=== PATIENT | female | born 1935 | race Caucasian/White ===

== ENCOUNTER → 2016-03-30 | Outpatient (CLI) | payer OTHER ==
--- NOTE | 2016-03-30 18:16 | DX ---
Chest, PA and Lateral History: Cough COMPARISON: Portable exam September 08, 2015 Findings: Lungs are clear, without infiltrate or consolidation. There is chronic or recurrent perihil ar bronchial wall thickening consistent with airways disease. Heart size is normal. There is no adeno jayden or mass lesion. There is no pleural effusion or pneumothorax. A left chest wall pacer device an d associated bipolar pacer leads remain in place. Bones are unremarkable for age. Impression: Chronic or recurrent airways disease without pneumonia. Results called to Luci at ext. [phone], as requested at 6:13 PM.
== END ==
LOC: FIMAGING 16:55
PROVIDERS: ATTEND Family Medicine
DX: J44.9 Chronic obstructive pulmonary disease, unspecified (principal)

== ENCOUNTER → 2016-05-26 | Outpatient (CLI) | payer OTHER | LOC: BMCIMAGING 11:38 | PROVIDERS: ATTEND Internal Medicine | DX: J40 Bronchitis, not specified as acute or chronic (principal) ==

== ENCOUNTER 2016-05-30 11:13 | Inpatient (IN) | payer OTHER ==
--- NOTE | 2016-05-30 11:26 | EDPHY ---
H & P Time Seen by Provider: 05/30/16 11:13 HPI/ROS: CHIEF COMPLAINT: Not feeling well severe shortness of breath HISTORY OF PRESENT ILLNESS: Patient started getting sick a week ago and was seen by her primary care physician's office on Wednesday of this week. Negative influenza testing but chest x-ray was positive for right upper lobe pneumonia and started on oral doxycycline. She had fever 101 degrees on Wednesday but felt better and yesterday was eating and afebrile. Today she got much worse and was short of breath and hypoxic at 50% on room air when paramedics got there. Shortness of breath severe and worse with lying flat. Associated with persistent cough. No associated chest pain or fever. REVIEW OF SYSTEMS: Eye: no change in vision ENT: no sore throat Cardiac: no chest pain or syncope Pulmonary: HPI Abdomen: no vomiting, diarrhea, abdominal pain Musculoskeletal: no back pain Skin: no rash Neuro: no headache Constitutional: HPI : no urinary symptoms A comprehensive 10 point review of systems is otherwise negative aside from elements mentioned in the history of present illness. PAST MEDICAL HISTORY: Influenza negative on 05/26/2016, atrial fibrillation on Eliquis Social history: Nonsmoker, here with General Appearance: Alert and conversant, cooperative. Eyes: No scleral icterus. ENT, Mouth: Normal mucous membranes. No angioedema. Respiratory: Tachypneic, rhonchi greater on the right side than the left, 83% on face mask oxygen. Cardiovascular: Regular rate and rhythm. 2/6 systolic murmur. Gastrointestinal: Abdomen is soft and non tender. Neurological: Alert and oriented x3. Normally conversant. Face symmetric, normal movement and sensation in all extremities. Skin: Warm and dry, no rashes. Musculoskeletal: No peripheral edema and no joint swelling. Psychiatric: Not agitated. Emergency Department course/MDM: Immediately placed on supplemental oxygen and then on CPAP mask. Chest x-ray and labs and blood cultures. 1200: Saturation 93-98% on BiPAP. Plan for IV fluid bolus and broad-spectrum antibiotics to include Zosyn 3.375g. Antibiotic chosen to avoid quinolones and macrolides with the patient already has a slightly long QT on EKG. ICU antibiotics, not hospitalized in the last 3 months. Negative influenza testing 4 days ago. 1205: Currently does not have SIRS criteria. Not tachypneic or tachycardic, normal temperature. 1221:lactate 1.0. ICU admission because of significant oxygen requirement and BiPAP. 1330: Blood pressure 1/15 systolic, patient alert and awake, oxygen saturation on BiPAP is in the mid 90s. Levaquin [address] Kruger, started in the emergency department. Smoking Status: Never smoked Constitutional: Initial Vital Signs Temperature (C) 36.0 C 05/30/16 11:19 Heart Rate 62 05/30/16 11:19 Respiratory Rate 18 05/30/16 11:19 Blood Pressure 141/78 H 05/30/16 11:19 O2 Sat (%) 84 L 05/30/16 11:19 O2 Delivery Mode Bi-Pap O2 (L/minute) 10 Allergies/Adverse Reactions: Sulfa (Sulfonamide Antibiotics) Allergy (Verified 09/08/15 21:36) Home Medications: Medication Instructions Recorded Acyclovir [Zovirax] 800 mg PO DAILY 09/08/15 Levothyroxine [Synthroid 88 mcg 88 mcg PO DAILY06 09/08/15 (*)] Losartan Potassium [Cozaar 50 mg 50 mg PO DAILY 09/08/15 (*)] SIMVASTATIN 10 mg PO HS 09/08/15 cycloSPORINE 0.05% [Restasis Opht 1 drop EACHEYE BID 09/08/15 Drops(*)] Apixaban [Eliquis] 2.5 mg PO BID 05/30/16 Benzonatate 200 mg PO TID PRN 05/30/16 Doxycycline Hyclate [Vibramycin 100 mg PO BID 05/30/16 100 MG (*)] Sotalol HCl [Sotalol] 120 mg PO BID 05/30/16 amLODIPine BESYLATE [Norvasc 5 mg 2.5 - 5 mg PO DAILY 05/30/16 (*)] Medical Decision Making - Diagnostics EKG Interpretation: 12-lead EKG interpreted by me; official reading is in trace master. My interpretation is sinus rhythm with left atrial abnormality. Imaging: Chest x-ray personally interpreted by myself at 11:33 a.m. shows bilateral infiltrates consistent with pneumonia. Procedures: Procedure right femoral vein blood draw Indication: IV access obtained but difficult to draw blood from peripheral access by nurses ChloraPrep and 18 gauge needle and 30 mL some blood drawn from right femoral vein without complication. Differential Diagnosis: Differential diagnosis considered for shortness of breath including but not limited to pulmonary infectious process, COPD, asthma, pulmonary embolus and congestive heart failure. Consult/Admit Bed Type: [facility] 121 Critical Care Time: Critical care time spent by me, Dr. William, exclusively with the care of this patient was 40 minutes, exclusive of PA or [employer] time and exclusive of separate procedures. The organ system at risk was pulmonary and I ordered supplemental oxygen, BiPAP, consultation with respiratory therapist and admitting hospitalist , IV fluid resuscitation and broad spectrum IV antibiotics; to stabilize the patient and prevent worsening of the patient's condition. - Data Points Laboratory Results: Laboratory Results 05/30/16 11:50 05/30/16 11:50 05/30/16 05/30/16 05/30/16 11:50 11:50 11:50 WBC 10.98 10^3/uL H 10^3/uL (3.80-9.50) RBC 4.22 10^6/uL 10^6/uL (4.18-5.33) Hgb 13.8 g/dL g/dL (12.6-16.3) POC Hgb Hct 38.7 % % (38.0-47.0) POC Hct MCV 91.7 fL fL (81.5-99.8) MCH 32.7 pg pg (27.9-34.1) MCHC 35.7 g/dL g/dL (32.4-36.7) RDW 13.2 % % (11.5-15.2) Plt Count 220 10^3/uL 10^3/uL (150-400) MPV 10.7 fL fL (8.7-11.7) Neut % (Auto) 81.9 % H % (39.3-74.2) Lymph % (Auto) 10.8 % L % (15.0-45.0) [place] % (Auto) 6.8 % % (4.5-13.0) Eos % (Auto) 0.0 % L % (0.6-7.6) Baso % (Auto) 0.1 % L % (0.3-1.7) Nucleat RBC Rel Count 0.0 % % (0.0-0.2) Absolute Neuts (auto) 8.99 10^3/uL H 10^3/uL (1.70-6.50) Absolute Lymphs (auto) 1.19 10^3/uL 10^3/uL (1.00-3.00) Absolute Monos (auto) 0.75 10^3/uL 10^3/uL (0.30-0.80) Absolute Eos (auto) 0.00 10^3/uL L 10^3/uL (0.03-0.40) Absolute Basos (auto) 0.01 10^3/uL L 10^3/uL (0.02-0.10) Absolute Nucleated RBC 0.00 10^3/uL 10^3/uL (0-0.01) Immature Gran % 0.4 % % (0.0-1.1) Seg Neutrophils % 71 % % Band Neutrophils % 8 % % Lymphocytes % 14 % % Monocytes % 7 % % Immature Gran # 0.04 10^3/uL 10^3/uL (0.00-0.10) Absolute Seg Neuts 7.80 10^/uL H 10^/uL (1.70-6.50) Absolute Band Neuts 0.88 10^3/uL H 10^3/uL (0.00-0.70) Absolute Lymphocytes 1.54 10^3/uL 10^3/uL (1.00-3.00) Absolute Monocytes 0.77 10^3/uL 10^3/uL (0.30-0.80) Platelet Estimate ADEQUATE (ADEQ) Polychromasia 1+ H Echinocytes 1+ H PT 18.6 SEC H SEC (12.0-15.0) INR 1.55 H (0.83-1.16) APTT 30.3 SEC SEC (23.0-38.0) VBG Lactic Acid POC Sodium Sodium 125 mEq/L L mEq/L (134-144) POC Potassium Potassium 3.9 mEq/L mEq/L (3.5-5.2) POC Chloride Chloride 93 mEq/L L mEq/L (97-110) Carbon Dioxide 22 mEq/l mEq/l (22-31) Anion Gap 10 mEq/L mEq/L (8-16) POC BUN BUN 15 mg/dL mg/dL (7-23) Creatinine 0.5 mg/dL L mg/dL (0.6-1.0) POC Creatinine Estimated GFR > 60 Glucose 116 mg/dL H mg/dL (70-100) POC Glucose Calcium 8.5 mg/dL mg/dL (8.5-10.4) Total Bilirubin 1.0 mg/dL mg/dL (0.1-1.4) 05/30/16 05/30/16 11:48 11:38 WBC RBC Hgb POC Hgb 16.3 gm/dL H gm/dL (12.3-15.9) Hct POC Hct 48 % H % (35.5-47.5) MCV MCH MCHC RDW Plt Count MPV Neut % (Auto) Lymph % (Auto) [place] % (Auto) Eos % (Auto) Baso % (Auto) Nucleat RBC Rel Count Absolute Neuts (auto) Absolute Lymphs (auto) Absolute Monos (auto) Absolute Eos (auto) Absolute Basos (auto) Absolute Nucleated RBC Immature Gran % Seg Neutrophils % Band Neutrophils % Lymphocytes % Monocytes % Immature Gran # Absolute Seg Neuts Absolute Band Neuts Absolute Lymphocytes Absolute Monocytes Platelet Estimate Polychromasia Echinocytes PT INR APTT VBG Lactic Acid 1.0 mmol/L mmol/L (0.7-2.1) POC Sodium 129 mEq/L L mEq/L (134-144) Sodium POC Potassium 3.9 mEq/L mEq/L (3.3-5.0) Potassium POC Chloride 91 mEq/L L mEq/L (96-108) Chloride Carbon Dioxide Anion Gap POC BUN 18 mg/dL mg/dL (7-23) BUN Creatinine POC Creatinine 0.5 mg/dL L mg/dL (0.6-1.2) Estimated GFR Glucose POC Glucose 114 mg/dL H mg/dL (70-100) Calcium Total Bilirubin Medications Given: Discontinued Medications Piperacillin/Tazobactam/Dextrose (Zosyn 3.375 Gm (Premix)) 50 mls @ 100 mls/hr IV EDNOW ONE PRN Reason: Protocol Stop: 05/30/16 12:37 Last Admin: 05/30/16 12:44 Dose: 50 mls Sodium Chloride (Ns) 1,000 mls @ 0 mls/hr IV ONCE ONE PRN Reason: Wide Open Stop: 05/30/16 12:11 Last Admin: 05/30/16 12:23 Dose: 1,000 mls Point of Care Test Results: 03/25/17 11:38 POC Sodium 129 L POC Potassium 3.9 POC Chloride 91 L POC BUN 18 POC Creatinine 0.5 L POC Glucose 114 H Departure - Departure Disposition: [facility] Inpatient Acute Clinical Impression: Hyponatremia Pneumonia Qualifiers: Pneumonia type: due to unspecified organism Laterality: bilateral Lung location : upper lobe of lung Qualified Code(s): J18.9 - Pneumonia, unspecified organism Condition: Serious
--- NOTE | 2016-05-30 11:27 | CPEKG ---
Heart Rate: 60 RR Interval: 1000 P-R Interval: 176 QRSD Interval: 92 QT Interval: 496 QTC Interval: 496 P [place]: 103 QRS [place]: 25 T Wave [place]: 27 EKG Severity - BORDERLINE ECG - EKG Impression: SINUS RHYTHM EKG Impression: PROBABLE LEFT ATRIAL ABNORMALITY EKG Impression: BORDERLINE PROLONGED QT INTERVAL Electronically Signed By: Eddie William 30-May-2016 11:31:48
[2016-05-30 12:01] LABS: % IMMATURE GRANULYOCYTES 0.4 % (0.0-1.1); ABSOLUTE IMMATURE GRANULOCYTES 0.04 10^3/uL (0.00-0.10); ADD DIFF? NO; ADD MORPH? NO; ADD SCAN? YES; FRAGMENT RBC FLAG 0 (0-99); HEMATOCRIT 38.7 % (38.0-47.0); HEMOGLOBIN 13.8 g/dL (12.6-16.3); LEFT SHIFT FLG 0 (0-99); LIPEMIA HEMOLYSIS FLAG 90 (0-99); MEAN CELL HEMOGLOBIN 32.7 pg (27.9-34.1); MEAN CELL HEMOGLOBIN CONCENTR. 35.7 g/dL (32.4-36.7); MEAN CELL VOLUME 91.7 fL (81.5-99.8); MEAN PLATELET VOLUME 10.7 fL (8.7-11.7); PLATELET CLUMPS FLAG 0 (0-99); PLATELET COUNT 220 10^3/uL (150-400); RED BLOOD CELL COUNT 4.22 10^6/uL (4.18-5.33); RED CELL DISTRIBUTION WIDTH 13.2 % (11.5-15.2)
[2016-05-30 12:03] LABS: ATYPICAL LYMPHOCYTE FLAG 270 (0-99)
[2016-05-30] MEDS ORDERED: PIPERACILLIN/TAZO 3.375 GM/DEX 50 ML IV ONE (12:08)
[2016-05-30] MEDS ORDERED: NS 1,000 ML IV ONE (12:10)
[2016-05-30 12:12] LABS: APTT 30.3 SEC (23.0-38.0); INR 1.55 (0.83-1.16); PROTIME(PATIENT) 18.6 SEC (12.0-15.0)
[2016-05-30 12:14] LABS: ANION GAP 10 mEq/L (8-16); CALCIUM 8.5 mg/dL (8.5-10.4); CARBON DIOXIDE 22 mEq/l (22-31); CHLORIDE 93 mEq/L (97-110); CREATININE 0.5 mg/dL (0.6-1.0); GLOMERULAR FILTRATION RATE > 60; GLUCOSE 116 mg/dL (70-100); POTASSIUM 3.9 mEq/L (3.5-5.2); SODIUM 125 mEq/L (134-144)
[2016-05-30 12:19] LABS: SCAN POSITIVE
[2016-05-30 12:23] LABS: ECHINOCYTES 1+; PLATELET ESTIMATE ADEQUATE (ADEQ); POLYCHROMASIA 1+
[2016-05-30] MEDS ORDERED: BENZONATATE 200 MG PO PRN (13:08)
[2016-05-30] MEDS ORDERED: NS W/ 20 KCl/L 1,000 ML IV SCH (13:15)
--- NOTE | 2016-05-30 13:17 | PDGENHP ---
History and Physical - Chief Complaint Acute shortness of breath - History of Present Illness PCP: Dr. Sarmiento Primary import/export specialist: Dr. Rao HPI: 81-year-old female presenting with acute shortness of breath characterized as difficulty breathing with associated cough and documented fever of 101 degrees F with onset of symptoms approximately 1 week ago and duration persistent thereafter. The patient was seen by Dr. Moran 5 days prior to this presentation, a chest x-ray was performed which demonstrated right upper lobe pneumonia, the patient was placed on doxycycline twice daily, which she has been adherent to. The patient reports no improvement in symptoms and her symptoms are exacerbated by lying supine. EMS was called and she was satting 50% on room air. In the [facility] emergency department she had notably difficult work of breathing and was visibly tachypneic, and she was placed on BiPAP and this has somewhat alleviated her tachypnea. Of note, the patient experience which she characterizes as cold or other viral symptoms in the end of March. At that time, she had chest x-ray which demonstrated no focal infiltrate. History Information - Allergies/Home Medication List Allergies/Adverse Reactions: Sulfa (Sulfonamide Antibiotics) Allergy (Verified 09/08/15 21:36) Home Medications: Acyclovir [Zovirax] 800 mg PO DAILY 09/08/15 [Last Taken 05/30/16] Levothyroxine [Synthroid 88 mcg (*)] 88 mcg PO DAILY06 09/08/15 [Last Taken ] Losartan Potassium [Cozaar 50 mg (*)] 50 mg PO DAILY 09/08/15 [Last Taken ] SIMVASTATIN 10 mg PO HS 09/08/15 [Last Taken 05/29/16] cycloSPORINE 0.05% [Restasis Opht Drops(*)] 1 drop EACHEYE BID 09/08/15 [Last Taken 05/30/16] Apixaban [Eliquis] 2.5 mg PO BID 05/30/16 [Last Taken 05/30/16] Benzonatate 200 mg PO TID PRN 05/30/16 [Last Taken Unknown] Doxycycline Hyclate [Vibramycin 100 MG (*)] 100 mg PO BID 05/30/16 [Last Taken 05/30/16] Sotalol HCl [Sotalol] 120 mg PO BID 05/30/16 [Last Taken 05/30/16] amLODIPine BESYLATE [Norvasc 5 mg (*)] 2.5 - 5 mg PO DAILY 05/30/16 [Last Taken 05/30/16] I have personally reviewed and updated: family history, medical history, social history, surgical history - Past Medical History atrial fibrillation (On Eliquis chronically), hypertension Additional medical history: CVA with right lower extremity paresis in 2001, prior to initiating Coumadin. Subdural hematoma while on Coumadin, right frontal area, adjusted to Pradaxa. Glaucoma in the left eye - Surgical History Additional surgical history: Permanent pacemaker, right craniectomy March 2015 , hysterectomy - Family History Additional family history: No Recent sick family contacts - Social History Smoking Status: Never smoked Alcohol Use: Occasionally Drug Use: None Additional social history: Independent in ADLs, lives with her at the [place] Review of Systems ROS: 10pt was reviewed & negative except for what was stated in HPI & below Constitutional: Reports: fever Respiratory: Reports: cough, shortness of breath Physical Exam Temp Pulse Resp BP Pulse Ox 36.4 C 61 16 142/77 H 96 05/30/16 12:01 05/30/16 12:26 05/30/16 12:26 05/30/16 12:26 05/30/16 12:26 Constitutional: appears nourished, not in pain, No no apparent distress ( Moderate distress), No uncomfortable Eyes: PERRL, anicteric sclera, EOMI Ears, Nose, Mouth, Throat: moist mucous membranes, hearing normal Cardiovascular: irregularly irregular, No systolic murmur, No tachycardia, No edema Respiratory: rhonchi (On inspiration bilaterally in the posterior segment), other (Tachypneic when she attempts to speak), No expiratory wheeze, No bronchial breath sounds Gastrointestinal: normoactive bowel sounds, soft, non-tender abdomen, no palpable masses Skin: warm, normal color, no rashes or abrasions, no fluctuance, no induration, No mottled Neurologic: AAOx3, sensation intact bilaterally Psychiatric: other (Lethargic but arousable, follows commands, interacts appropriately when she is awake) Lab Data & Imaging Review 05/30/16 11:50 05/30/16 11:50 WBC 10.98 10^3/uL (3.80-9.50) H 05/30/16 11:50 RBC 4.22 10^6/uL (4.18-5.33) 05/30/16 11:50 Hgb 13.8 g/dL (12.6-16.3) 05/30/16 11:50 POC Hgb 16.3 gm/dL (12.3-15.9) H 05/30/16 11:38 Hct 38.7 % (38.0-47.0) 05/30/16 11:50 POC Hct 48 % (35.5-47.5) H 05/30/16 11:38 MCV 91.7 fL (81.5-99.8) 05/30/16 11:50 MCH 32.7 pg (27.9-34.1) 05/30/16 11:50 MCHC 35.7 g/dL (32.4-36.7) 05/30/16 11:50 RDW 13.2 % (11.5-15.2) 05/30/16 11:50 Plt Count 220 10^3/uL (150-400) 05/30/16 11:50 MPV 10.7 fL (8.7-11.7) 05/30/16 11:50 Neut % (Auto) 81.9 % (39.3-74.2) H 05/30/16 11:50 Lymph % (Auto) 10.8 % (15.0-45.0) L 05/30/16 11:50 [place] % (Auto) 6.8 % (4.5-13.0) 05/30/16 11:50 Eos % (Auto) 0.0 % (0.6-7.6) L 05/30/16 11:50 Baso % (Auto) 0.1 % (0.3-1.7) L 05/30/16 11:50 Nucleat RBC Rel Count 0.0 % (0.0-0.2) 05/30/16 11:50 Absolute Neuts (auto) 8.99 10^3/uL (1.70-6.50) H 05/30/16 11:50 Absolute Lymphs (auto) 1.19 10^3/uL (1.00-3.00) 05/30/16 11:50 Absolute Monos (auto) 0.75 10^3/uL (0.30-0.80) 05/30/16 11:50 Absolute Eos (auto) 0.00 10^3/uL (0.03-0.40) L 05/30/16 11:50 Absolute Basos (auto) 0.01 10^3/uL (0.02-0.10) L 05/30/16 11:50 Absolute Nucleated RBC 0.00 10^3/uL (0-0.01) 05/30/16 11:50 Immature Gran % 0.4 % (0.0-1.1) 05/30/16 11:50 Seg Neutrophils % 71 % 05/30/16 11:50 Band Neutrophils % 8 % 05/30/16 11:50 Lymphocytes % 14 % 05/30/16 11:50 Monocytes % 7 % 05/30/16 11:50 Immature Gran # 0.04 10^3/uL (0.00-0.10) 05/30/16 11:50 Absolute Seg Neuts 7.80 10^/uL (1.70-6.50) H 05/30/16 11:50 Absolute Band Neuts 0.88 10^3/uL (0.00-0.70) H 05/30/16 11:50 Absolute Lymphocytes 1.54 10^3/uL (1.00-3.00) 05/30/16 11:50 Absolute Monocytes 0.77 10^3/uL (0.30-0.80) 05/30/16 11:50 Platelet Estimate ADEQUATE (ADEQ) 05/30/16 11:50 Polychromasia 1+ H 05/30/16 11:50 Echinocytes 1+ H 05/30/16 11:50 PT 18.6 SEC (12.0-15.0) H 05/30/16 11:50 INR 1.55 (0.83-1.16) H 05/30/16 11:50 APTT 30.3 SEC (23.0-38.0) 05/30/16 11:50 VBG Lactic Acid 1.0 mmol/L (0.7-2.1) 05/30/16 11:48 POC Sodium 129 mEq/L (134-144) L 05/30/16 11:38 Sodium 125 mEq/L (134-144) L 05/30/16 11:50 POC Potassium 3.9 mEq/L (3.3-5.0) 05/30/16 11:38 Potassium 3.9 mEq/L (3.5-5.2) 05/30/16 11:50 POC Chloride 91 mEq/L (96-108) L 05/30/16 11:38 Chloride 93 mEq/L (97-110) L 05/30/16 11:50 Carbon Dioxide 22 mEq/l (22-31) 05/30/16 11:50 Anion Gap 10 mEq/L (8-16) 05/30/16 11:50 POC BUN 18 mg/dL (7-23) 05/30/16 11:38 BUN 15 mg/dL (7-23) 05/30/16 11:50 Creatinine 0.5 mg/dL (0.6-1.0) L 05/30/16 11:50 POC Creatinine 0.5 mg/dL (0.6-1.2) L 05/30/16 11:38 Estimated GFR > 60 05/30/16 11:50 Glucose 116 mg/dL (70-100) H 05/30/16 11:50 POC Glucose 114 mg/dL (70-100) H 05/30/16 11:38 Calcium 8.5 mg/dL (8.5-10.4) 05/30/16 11:50 Total Bilirubin 1.0 mg/dL (0.1-1.4) 05/30/16 11:50 Visualized and Interpreted Chest x-ray results: Yes Chest X-Ray results: other (Bilateral infiltrates, right upper lobe consolidation) Visualized and Interpreted EKG results: Yes EKG Interpretation: Positive for: other (QT interval around 500, low voltage in the inferior leads) Assessment & Plan Assessment: 81-year-old female presents with acute hypoxic respiratory failure in the setting of pneumonia Plan: 1. Acute hypoxic respiratory failure. New problem this provider, further workup indicated. Evidenced by SpO2 of 50% on room air on presentation, her SpO2 was 84% on 10 L nasal cannula which is equivalent to a P:F ratio of 96 ( severe acute lung injury by WHO criteria) + visible tachypnea and labored breathing on presentation, 2/2 pneumonia. -get baseline ABG -adjust from BiPAP to vapotherm 2. Pneumonia. Community acquired, time course of viral illness 03/30/16 is a bit outside of when one typically sees post-viral MRSA superinfxn -d/w Dr. William in ED, we both agree that covering for atypicals w/o macrolide is a good idea since her QT 500 and on sotalol -outside records reviewed including neg flu PCR 05/26 and CXR w/ RUL inf -received zosyn in ED, will adjust to levofloxacin 750mg IV daily -get uLeg/uStrep/sputum Cx/BCx -monitor CBC 3. Atrial fibrillation. Persistent, in NSR b/c of sotalol, continue -cont eliquis -monitor on tele -daily EKG to monitor QT 4. Hyponatremia. Acute, 2/2 hypovolemia, cont on NS Diet. Regular, BUS ESCORT eval PPx. High risk, on eliquis Code. Full per patient, MPOA Dispo. ADD uncertain, anticipated LOS > 48hrs warranting inpatient admission status for reasonable medical necessity including acute resp failure requiring high flow o2 w/ high risk comorbid afib, hyponatremia, PNA.
[2016-05-30] MEDS ORDERED: levOFLOXACIN 750 MG/DEXTROSE/150 ML BAG IV ONE (13:30)
[2016-05-30] MEDS ORDERED: BENZONATATE 100 MG CAP PO PRN (13:54)
[2016-05-30 15:58] LABS: COLOR PALE YELLOW; LEUKOCYTE ESTERASE,URINE NEGATIVE (NEGATIVE); NITRITE,URINE NEGATIVE (NEGATIVE)
[2016-05-30 16:06] LABS: BACTERIA TRACE /hpf (NONE SEEN); MUCUS TRACE /lpf (NONE-1+); WBC,URINE NONE SEEN /hpf (0-3)
[2016-05-30 20:13] LABS: BASE EXCESS -1.6 mEq/L (-2.5-2.5); BICARBONATE 22 mEq/L (22-26); MEASURED OXYGEN SATURATION 88 % (92-95); PCO2 33 mmHg (34-38); PO2 56 mmHg (65-75); TCO2 23 mEq/L (23-27)
--- NOTE | 2016-05-30 20:52 | GCON ---
[f rep st] CONSULTATION PULMONARY CONSULT DATE OF CONSULTATION: 05/30/2016 HISTORY OF PRESENT ILLNESS: This patient is an 81-year-old female who was admitted today with short ness of breath associated with cough and fever of 101. She was seen in her primary care physician's office earlier this week, and a chest x-ray was performed showing a right upper lobe pneumonia. Susan abbott was treated with doxycycline, but has had no improvement since that time. Particularly notes that her breathing was bad in a supine position. She tried sitting up in bed, was unable to sleep that way. She found that even walking around and just standing upright, her breathing was good. She valeria led EMS this morning though and found that her oxygen saturation was 50% on room air. She was broug ht to the emergency department. A repeat chest x-ray showed substantial worsening of her infiltrate , and she was placed on BiPAP which helped substantially. REVIEW OF SYSTEMS: Otherwise was negative. PAST MEDICAL HISTORY: Includes: 1. Atrial fibrillation. 2. Hypertension. 3. Stroke with right lower extremity paresis in 2001. 4. Subdural hematoma while on Coumadin, adjusted to Pradaxa. 5. Glaucoma in her left eye. 6. Hypothyroidism. 7. Probably varicella. 8. Probable glaucoma. 9. Hyperlipidemia. PAST SURGICAL HISTORY: Includes pacemaker, a right craniectomy in March 2015 and hysterectomy. FAMILY HISTORY: Otherwise noncontributory. SOCIAL HISTORY: She is a nonsmoker. Drinks occasional alcohol, but no IV drug use. Lives independ ently. OUTPATIENT MEDICATIONS: Include simvastatin, cyclosporine eye drops, losartan, levothyroxine, acycl ovir, amlodipine, doxycycline, Eliquis, sotalol and benzonatate capsules. PHYSICAL EXAMINATION: VITAL SIGNS: She is afebrile, blood pressure is 141/78, heart rate 62, respi rations 18, oxygen saturation is 97% on Vapotherm at 30 L/minute and 90% of FiO2. GENERAL: She is awake and alert, in no apparent distress and able to speak in full sentences without using accessory muscles for breathing. HEENT: Pupils equally round, reactive to light. Nonicteric and noninjecte d. Mucous membranes are moist without erythema or exudate. NECK: Supple without adenopathy or jug ular vein distention. CHEST: Reveals bilateral coarse breath sounds without obvious wheezing. HEA RT: Regular rate and rhythm without obvious murmur. ABDOMEN: Soft, nontender, nondistended withou t hepatosplenomegaly. EXTREMITIES: Shows no clubbing, cyanosis, or edema. NEUROLOGIC: Nonfocal i ncluding cranial nerves and deep tendon reflexes. OBJECTIVE DATA: Includes a white count of 10.98, hematocrit of 38, platelets of 220. INR was 1.5. Sodium was 125, with potassium at 3.9, chloride 93, bicarb 22, BUN 15, creatinine 0.5. Urinalysis was unremarkable. Chest x-ray as described. ASSESSMENT AND PLAN: 1. Probable community-acquired pneumonia that failed outpatient antibiotic therapy; as is seen many times pneumonias can be become worse before they get better. This may have been the underlying leonarda e. Blood cultures are pending at this time. She is treated with Levaquin monotherapy which is cert ainly not unreasonable. I think that a urinary streptococcal and Legionella antigens should be chec ked as well as a BNP. Of course, we should continue to support her with oxygen; Vapotherm is fairly high dose, but she does not look like she is in distress and I think in the setting of pneumonia th at noninvasive ventilation can actually make these things substantially worse. 2. Hyponatremia. This may be an SIADH picture, and we will check the serum and urine osmoles. 3. Atrial fibrillation. She appears to be well controlled at this time. Continue her outpatient m edications. /[id number]/[id number]
[2016-05-30] MEDS: SIMVASTATIN 10 MG PO SCH (20:53)
[2016-05-30] MEDS: APIXABAN 2.5 MG TAB PO SCH (20:53)
[2016-05-30] MEDS: SOTALOL HCL 120 MG PO SCH (20:53)
[2016-05-30] MEDS: CYCLOSPORINE 0.05% 1 EACH BOX EACHEYE SCH (20:54)
[2016-05-30] MEDS ORDERED: NON-FORMULARY NEW DRUG (Sotalol Hcl [Sotalol] 120 MG) PO SCH (21:00)
[2016-05-30] MEDS ORDERED: SOTALOL HCL 80 MG TAB PO SCH (21:00)
[2016-05-30] MEDS ORDERED: NON-FORMULARY NEW DRUG (Simvastatin [Simvastatin] 10 MG) PO SCH (21:00)
[2016-05-30] MEDS ORDERED: PRAVASTATIN SODIUM 20 MG TAB PO SCH (21:00)
[2016-05-31 04:06] LABS: % IMMATURE GRANULYOCYTES 0.5 % (0.0-1.1); ABSOLUTE IMMATURE GRANULOCYTES 0.07 10^3/uL (0.00-0.10); ADD DIFF? NO; ADD MORPH? NO; ADD SCAN? NO; ATYPICAL LYMPHOCYTE FLAG 90 (0-99); FRAGMENT RBC FLAG 0 (0-99); HEMATOCRIT 38.2 % (38.0-47.0); HEMOGLOBIN 13.3 g/dL (12.6-16.3); LEFT SHIFT FLG 0 (0-99); LIPEMIA HEMOLYSIS FLAG 90 (0-99); MEAN CELL HEMOGLOBIN 32.3 pg (27.9-34.1); MEAN CELL HEMOGLOBIN CONCENTR. 34.8 g/dL (32.4-36.7); MEAN CELL VOLUME 92.7 fL (81.5-99.8); MEAN PLATELET VOLUME 10.6 fL (8.7-11.7); PLATELET CLUMPS FLAG 0 (0-99); PLATELET COUNT 219 10^3/uL (150-400); RED BLOOD CELL COUNT 4.12 10^6/uL (4.18-5.33); RED CELL DISTRIBUTION WIDTH 13.2 % (11.5-15.2)
[2016-05-31 04:18] LABS: ALANINE AMINOTRANSFERASE 41 IU/L (9-52); ALBUMIN 2.5 g/dL (3.5-5.0); ALKALINE PHOSPHATASE 68 IU/L (38-126); ANION GAP 8 mEq/L (8-16); ASPARTATE AMINOTRANSFERASE 41 IU/L (14-46); BILIRUBIN,TOTAL 1.3 mg/dL (0.1-1.4); CALCIUM 7.8 mg/dL (8.5-10.4); CARBON DIOXIDE 21 mEq/l (22-31); CHLORIDE 101 mEq/L (97-110); CREATININE 0.5 mg/dL (0.6-1.0); GLOMERULAR FILTRATION RATE > 60; GLUCOSE 89 mg/dL (70-100); MAGNESIUM 1.5 mg/dL (1.6-2.3); POTASSIUM 3.8 mEq/L (3.5-5.2); SODIUM 130 mEq/L (134-144)
[2016-05-31] MEDS: LEVOTHYROXINE 88 MCG TAB PO SCH (05:38)
[2016-05-31] MEDS: ACYCLOVIR 400 MG TAB PO SCH (08:03)
[2016-05-31] MEDS: amLODIPine BESYLATE 5 MG TAB PO SCH (08:04)
[2016-05-31] MEDS: APIXABAN 2.5 MG TAB PO SCH ×2 (08:05→20:34)
[2016-05-31] MEDS: CYCLOSPORINE 0.05% 1 EACH BOX EACHEYE SCH ×2 (08:06→20:35)
[2016-05-31] MEDS: SOTALOL HCL 120 MG PO SCH ×2 (08:07→20:35)
[2016-05-31] MEDS: ACETAMINOPHEN 325 MG TAB PO PRN ×2 (08:11→21:10)
[2016-05-31] MEDS ORDERED: ACYCLOVIR 800 MG PO SCH (09:00)
[2016-05-31] MEDS ORDERED: VANCOMYCIN 750 MG in D5W 150 ML IV SCH (11:00)
[2016-05-31] MEDS: methylPREDNISolone SOD SUCC 125 MG/2 ML VIAL IVP SCH ×3 (11:42→23:40)
[2016-05-31] MEDS: VANCOMYCIN 750 MG in D5W 150 ML IV SCH (11:42)
--- NOTE | 2016-05-31 14:20 | HOSPPROG ---
Hospitalist Progress Note Assessment/Plan: Assessment: 81-year-old female presents with acute hypoxic respiratory failure in the setting of pneumonia Plan: 1. Acute hypoxic respiratory failure. Evidenced by SpO2 of 50% on room air on presentation, her SpO2 was 84% on 10 L nasal cannula which is equivalent to a P: F ratio of 96 (severe acute lung injury by WHO criteria) + visible tachypnea and labored breathing on presentation, 2/2 pneumonia. -failed vapotherm 100% o/n, placed back on BiPAP -d/w Dr. Marion, will reattempt w/ vapotherm today 2. Pneumonia. POA, community acquired, time course of viral illness 03/30/16 is a bit outside of when one typically sees post-viral MRSA superinfxn, but given clinical worsening, per d/w Dr. Marion, we have agreed to add Vanco to the Levaquin -due to clinical worsening, add steroid per 2016 published literature/search and EBM -uLeg/uStrep/sputum Cx/BCx pending -monitor CBC 3. Atrial fibrillation. Persistent, in NSR b/c of sotalol, continue -cont eliquis -monitor on tele -daily EKG to monitor QT 4. Hyponatremia. Acute, 2/2 hypovolemia and possible SIADH, cont on NS Diet. NPO while on BiPAP, adv if kit vapotherm PPx. High risk, on eliquis Code. Full per patient, MPOA Dispo. ADD uncertain, clinically unresolved. Patient remains high risk of mortality, high level of medical complexity 2/2 conditions above. Subjective: Patient continues to feel short of breath Objective: Vital Signs Temp Pulse Resp BP Pulse Ox 36.9 C 60 29 H 137/67 H 88 L 05/31/16 08:00 05/31/16 12:00 05/31/16 12:00 05/31/16 12:00 05/31/16 12:00 Microbiology 05/31/16 03:50 - Final Sputum, Expectorated Laboratory Results 05/31/16 03:50 05/31/16 03:50 05/30/16 05/31/16 06/01/16 05:59 05:59 05:59 Intake Total 3062 Output Total 910 Balance 2152 PT 18.6 SEC (12.0-15.0) H 05/30/16 11:50 INR 1.55 (0.83-1.16) H 05/30/16 11:50 - Physical Exam Constitutional: appears nourished, not in pain, uncomfortable (Moderate with BiPAP mask), No no apparent distress (Moderate distress) Cardiovascular: systolic murmur (2/6 at the sternum and apex), No irregularly irregular, No tachycardia, No edema Respiratory: respiratory distress (Visibly tachypneic), rhonchi (On inspiration by), No expiratory wheeze, No bronchial breath sounds Gastrointestinal: normoactive bowel sounds, soft, non-tender abdomen, no palpable masses Psychiatric: interacting appropriately, not anxious, not encephalopathic, thought process linear ICD10 Worksheet Patient Problems: Problems Problem Status Onset Hyponatremia Acute Pneumonia Acute Transient cerebral ischemia Acute
--- NOTE | 2016-05-31 14:33 | PDINTPN ---
Tag And Label Cutter Progress Note Assessment/Plan: Assessment/plan: 81 F admitted 05/30 with CAP after failing outpatient therapy with doxycycline and worsening infiltrates on CXR. She has a pacemaker in the setting of atrial fibrillation and HTN, but no chronic lung disease and is a non smoker. She was initially treated with Levaquin. * Respiratory failure with hypoxemia- 2/2 CAP. I am concerned with the level of O2 requirement, severity of infiltrates on CXR, and a rising WBC despite levaquin. A macrolide was held 2/2 concerns about prolonged QT, but additional abx at this point are warranted. I am also in favor of steroid- prednisone 50 mg /d for 5 days (or IV equivalent). Bipap is not an unreasonable option, but I would favor ETT if needed in this setting. Given her tenuous nature I would also keep her NPO. We could also consider a diuretic (she is getting gentle IVF now) given her BNP of 1870. * CAP- as above. Await legionella and strep urinary antigens. * Hyponatremia- consistent with SIADH despite initial tiny rise with IVF. Change to fluid restriction of about 1000 mL/24 hours should her sodium plateau or fall. * CHF? I am unable to locate an echo in [employer] or [employer] so will check one now, though the bulk of evidence supports PNA>CHF Subjective: Required bipap last pm for difficulty maintaining sats, but transitioned back to vapotherm this AM- 20 lpm and 100%. Feels slightly better today Objective: Vital Signs Temp Pulse Resp BP Pulse Ox 36.9 C 60 29 H 137/67 H 88 L 05/31/16 08:00 05/31/16 12:00 05/31/16 12:00 05/31/16 12:00 05/31/16 12:00 Microbiology 05/31/16 03:50 - Final Sputum, Expectorated Laboratory Results 05/31/16 03:50 05/31/16 03:50 05/30/16 05/31/16 06/01/16 05:59 05:59 05:59 Intake Total 3062 Output Total 910 Balance 2152 PT 18.6 SEC (12.0-15.0) H 05/30/16 11:50 INR 1.55 (0.83-1.16) H 05/30/16 11:50 Physical Exam - Physical Exam General Appearance: alert, mild distress EENT: PERRL/EOMI Neck: supple Respiratory: decreased breath sounds, crackles, No respiratory distress Cardiac/Chest: normal peripheral pulses, regular rate, rhythm, No edema Abdomen: normal bowel sounds, non-tender, soft, No distended Skin: normal color, warm/dry Lymphatic: no adenopathy Extremities: No pedal edema Neuro/Psych: alert, normal mood/affect, oriented x 3 ICD10 Worksheet Patient Problems: Problems Problem Status Onset Hyponatremia Acute Pneumonia Acute Transient cerebral ischemia Acute
[2016-05-31] MEDS: SIMVASTATIN 10 MG PO SCH (20:34)
[2016-06-01] MEDS: methylPREDNISolone SOD SUCC 125 MG/2 ML VIAL IVP SCH ×2 (06:27→11:46)
[2016-06-01] MEDS: LEVOTHYROXINE 88 MCG TAB PO SCH (06:27)
[2016-06-01 06:44] LABS: % IMMATURE GRANULYOCYTES 0.9 % (0.0-1.1); ADD DIFF? NO; ADD MORPH? NO; ADD SCAN? NO; ATYPICAL LYMPHOCYTE FLAG 40 (0-99); FRAGMENT RBC FLAG 0 (0-99); HEMATOCRIT 40.6 % (38.0-47.0); HEMOGLOBIN 13.9 g/dL (12.6-16.3); LEFT SHIFT FLG 0 (0-99); LIPEMIA HEMOLYSIS FLAG 90 (0-99); MEAN CELL HEMOGLOBIN 31.3 pg (27.9-34.1); MEAN CELL HEMOGLOBIN CONCENTR. 34.2 g/dL (32.4-36.7); MEAN CELL VOLUME 91.4 fL (81.5-99.8); MEAN PLATELET VOLUME 10.5 fL (8.7-11.7); PLATELET CLUMPS FLAG 0 (0-99); PLATELET COUNT 252 10^3/uL (150-400); RED BLOOD CELL COUNT 4.44 10^6/uL (4.18-5.33); RED CELL DISTRIBUTION WIDTH 13.5 % (11.5-15.2)
[2016-06-01 07:09] LABS: ANION GAP 7 mEq/L (8-16); CALCIUM 8.3 mg/dL (8.5-10.4); CARBON DIOXIDE 22 mEq/l (22-31); CHLORIDE 107 mEq/L (97-110); CREATININE 0.6 mg/dL (0.6-1.0); GLOMERULAR FILTRATION RATE > 60; GLUCOSE 121 mg/dL (70-100); MAGNESIUM 1.8 mg/dL (1.6-2.3); POTASSIUM 4.5 mEq/L (3.5-5.2); SODIUM 136 mEq/L (134-144)
[2016-06-01] MEDS: ACYCLOVIR 400 MG TAB PO SCH (07:40)
[2016-06-01] MEDS: amLODIPine BESYLATE 5 MG TAB PO SCH (07:40)
[2016-06-01] MEDS: APIXABAN 2.5 MG TAB PO SCH ×2 (07:42→21:32)
[2016-06-01] MEDS: SOTALOL HCL 120 MG PO SCH ×2 (07:43→21:36)
[2016-06-01] MEDS: CYCLOSPORINE 0.05% 1 EACH BOX EACHEYE SCH ×2 (07:43→21:32)
--- NOTE | 2016-06-01 10:42 | ECHO ---
[id number] + + [address] : : [place] [address] : : [phone] + + Adult Echocardiographic Report + ---------+ :Name: DANIEL HINDS FStudy Date: 06/01/2016 07:53 AM : : Hospital Admission Number: [id number] Asia dela cruz: 244: :: 1935 Gender: Female Height: 62 i n : :Age: 81 yrs Race: WH Weight: 115 lb : :Reason For Study: High oxygen requirement/high BNP : : BSA: 1.5 met ers2 : :History: Pacer/HTN : + ---------+ MMode/2D Measurements \T\ Calculations IVSd: 0.89 cm LVIDd: 4.0 cm FS: 28.2 % MV Diam: 3.1 cm LVPWd: 1.0 cm LVIDs: 2.9 cm EDV(Teich): 71.4 ml ESV(Teich): 32.1 ml EF(Teich): 55.0 % Ao root diam: 2.4 cm LVOT diam: 1.8 cm LA dimension: 4.1 cm LVOT area: 2.5 cm2 Normal Measurement Values: + + :LVIDd (3.5-5.7cm) IVSd (0.6-1.1cm) LVPWd (0.6-1.1cm) Aortic Root (2.0-3.7cm)Left Atrium (1.5-4.0cm): :LV Vol(d) (76-115ml) LV Vol(s) (29-48ml) Ejec Fraction (50-65%)PV Farshad (0.6- 1.2m/s) TV Farshad (0.4-1.0m/s) : :MV E Farshad (0.8-1.0m/s)MV A Farshad (0.3-1.0m/s)LVOT Farshad (0.7-1.2m/s) Asc Ao Farshad ( 0.9-1.8m/s) : + + Doppler Measurements \T\ Calculations MV E max farshad: MV V2 max: Ao V2 max: LV V1 mean P.5 cm/sec 181.9 cm/sec 111.9 cm/sec 1.2 mmHg MV A max farshad: MV max P.2 mmHgAo max P.0 mmHgLV V1 mean: 31.5 cm/sec MV V2 mean: Ao mean P.0 cm/sec MV E/A: 5.5 75.0 cm/sec 2.9 mmHg LV V1 VTI: 19.2 cm MV mean P.2 mmHgAo V2 mean: MV V2 VTI: 32.2 cm 79.9 cm/sec MV area (1 diam): Ao V2 VTI: 27.6 cm 7.5 cm2 YECENIA(I,D): 1.7 cm2 MVA(VTI): 1.5 cm2 MV Flow area(1diam): 7.5 cm2 MR max farshad: MR(RF 1 diam): SV(MV 1 diam): TR max farshad: 475.1 cm/sec 22.5 % 243.0 ml 360.9 cm/sec MR max PG: SI(MV 1 diam): TR max P.3 mmHg 52.1 mmHg 160.8 ml/m2 RAP systole: SV(LVOT): 47.1 ml 10.0 mmHg RVSP(TR): 62.1 mmHg RF(MV,Ao)(1 diam): 0.51 RF(MV,LVOT)(1diam): 0.81 Left Ventricle The left ventricle is normal in size. There is mild concentric left ventricular hypertrophy. Left ventricular systolic function is normal. Ejection Fraction = 70-75%. There is Doppler evidence for diastolic dysfunction. No regional wall motion abnormalities noted. Right Ventricle The right ventricle is normal in size and function. There is a pacemaker lead in the right ventricle. Atria The left atrium is severely dilated. The right atrium is mildly dilated. The interatrial septum is intact with no evidence for an atrial septal defect. Mitral Valve Calcified posterior mitral leaflet. There is no evidence of mitral valve prolapse. There is no mitral valve stenosis. There is moderate mitral regurgitation. Tricuspid Valve Normal tricuspid valve. Right ventricular systolic pressure is 63mmHg. There is moderate tricuspid regurgitation. There is Doppler evidence for moderate pulmonary hypertension. Aortic Valve The aortic valve opens well. There is no aortic stenosis. There is no aortic insufficiency. Pulmonic Valve The pulmonic valve is not well visualized. There is no pulmonic valvular regurgitation. Great Vessels The aortic root is normal size. Pericardium/Pleural There is no pericardial effusion. Conclusion A complete two-dimensional transthoracic echocardiogram was performed (2D, M-mode, Doppler and color flow Doppler). Left ventricular systolic function is normal. There is mild concentric left ventricular hypertrophy. Ejection Fraction = 70-75%. There is Doppler evidence for diastolic dysfunction. There is a pacemaker lead in the right ventricle. The left atrium is severely dilated. The right atrium is mildly dilated. Calcified posterior mitral leaflet. There is moderate mitral regurgitation. There is moderate tricuspid regurgitation. Right ventricular systolic pressure is 63mmHg. There is Doppler evidence for moderate pulmonary hypertension. Final Reading Physician: Deepa Liao signed on 06/01/2016 10:41 AM Ordering Physician: Marshall Marion Performed By: Cynthia Conn RDCS
[2016-06-01] MEDS: IPRATROPIUM/ALBUTEROL 3 ML DEYVIAL IH SCH ×3 (10:43→17:40)
[2016-06-01] MEDS: VANCOMYCIN 750 MG in D5W 150 ML IV SCH (11:46)
--- NOTE | 2016-06-01 14:54 | HOSPPROG ---
Hospitalist Progress Note Assessment/Plan: Assessment: 81-year-old female presents with acute hypoxic respiratory failure in the setting of pneumonia Plan: 1. Acute hypoxic respiratory failure. Evidenced by SpO2 of 50% on room air on presentation, her SpO2 was 84% on 10 L nasal cannula which is equivalent to a P: F ratio of 96 (severe acute lung injury by WHO criteria) + visible tachypnea and labored breathing on presentation, 2/2 pneumonia. -s/p BiPAP -d/w Dr. Arzate, will attempt control on vapotherm today -Echo w/ an element of pulm HTN and diastolic dysfunction, but no overt CHF clinically 2. Pneumonia. POA, community acquired -adjust to prednisone D#2 -uLeg/uStrep/sputum Cx/BCx pending -monitor CBC -D#2 Vanco/Levo -add nebs 3. Atrial fibrillation. Persistent, in NSR b/c of sotalol, continue -cont eliquis -monitor on tele -daily EKG to monitor QT 4. Hyponatremia. Acute, 2/2 hypovolemia Diet. Regular PPx. High risk, on eliquis Code. Full per patient, MPOA Dispo. ADD uncertain, clinically unresolved. Subjective: Patient reports that she is feeling better today than she was yesterday, continues to get short of breath with any level of physical activity Objective: Vital Signs Temp Pulse Resp BP Pulse Ox 36.9 C 70 23 H 116/60 96 05/31/16 08:00 06/01/16 14:00 06/01/16 14:00 06/01/16 14:00 06/01/16 14:00 Microbiology 05/31/16 03:50 - Final Sputum, Expectorated Laboratory Results 06/01/16 06:30 06/01/16 06:30 05/31/16 06/01/16 06/02/16 05:59 05:59 05:59 Intake Total 3062 2768 Output Total 910 1950 Balance 2152 818 PT 18.6 SEC (12.0-15.0) H 05/30/16 11:50 INR 1.55 (0.83-1.16) H 05/30/16 11:50 - Physical Exam Constitutional: no apparent distress, appears nourished, not in pain, uncomfortable (With breathing) Cardiovascular: systolic murmur (3/6 at the sternum and apex), No irregularly irregular, No tachycardia, No edema Respiratory: respiratory distress (Difficulty with full sentences), rhonchi ( Bilaterally anteriorly), No expiratory wheeze, No bronchial breath sounds Gastrointestinal: normoactive bowel sounds, soft, non-tender abdomen, no palpable masses Neurologic: AAOx3, No facial droop Psychiatric: interacting appropriately, not anxious, not encephalopathic, thought process linear ICD10 Worksheet Patient Problems: Problems Problem Status Onset Transient cerebral ischemia Acute Pneumonia Acute Hyponatremia Acute
[2016-06-01] MEDS: predniSONE 20 MG TAB PO SCH (16:08)
--- NOTE | 2016-06-01 17:14 | PDINTPN ---
Review Coordinator Progress Note Assessment/Plan: Assessment: 81 F admitted 05/30 with CAP after failing outpatient therapy with doxycycline and worsening infiltrates on CXR. She has a pacemaker in the setting of atrial fibrillation and HTN, but no chronic lung disease and is a non smoker. She was initially treated with Levaquin. * Respiratory failure with hypoxemia- New problem to me. 2/2 multilobar CAP. On Levo/Vanco, as well as prednisone and albuterol nebs. * CAP- as above. Sputum Cx MOF. Await legionella and strep urinary antigens. * Hyponatremia- consistent with SIADH despite initial tiny rise with IVF. Improved with fluid restriction. * CHF?: ECHO with Normal LV, Moderate pulmonary HTN. * Plan: Probably could D/C Vanco if cultures negative tomorrow. Repeat CXR. Increase activity as tolerated. 06/01/16 17:23 06/01/16 17:26 06/02/16 11:27 Subjective: Better today, able to walk out of room. Some non-productive cough this AM, none for the rest of the day. Still gets winded quite easily. Objective: Vital Signs Temp Pulse Resp BP Pulse Ox 36.9 C 61 26 H 118/65 96 05/31/16 08:00 06/01/16 16:00 06/01/16 16:00 06/01/16 16:00 06/01/16 16:00 Microbiology 05/31/16 03:50 - Final Sputum, Expectorated Laboratory Results 06/01/16 06:30 06/01/16 06:30 05/31/16 06/01/16 06/02/16 05:59 05:59 05:59 Intake Total 3062 2768 1038 Output Total 910 1950 200 Balance 2152 818 838 PT 18.6 SEC (12.0-15.0) H 05/30/16 11:50 INR 1.55 (0.83-1.16) H 05/30/16 11:50 ECHO: EF 70-75%, LA severely dilated. Moderate MR. RVSP 63. Physical Exam - Physical Exam General Appearance: alert, no apparent distress EENT: normal ENT inspection Neck: normal inspection Respiratory: rales (bilateral) Cardiac/Chest: regular rate, rhythm Abdomen: normal bowel sounds, non-tender Skin: normal color, warm/dry Extremities: normal inspection Neuro/Psych: alert, normal mood/affect, oriented x 3 ICD10 Worksheet Patient Problems: Problems Problem Status Onset Hyponatremia Acute Pneumonia Acute Transient cerebral ischemia Acute
[2016-06-01] MEDS: MELATONIN 3 MG TAB PO SCH (21:32)
[2016-06-01] MEDS: SIMVASTATIN 10 MG PO SCH (21:34)
[2016-06-02] MEDS: IPRATROPIUM/ALBUTEROL 3 ML DEYVIAL IH SCH ×4 (00:03→18:07)
[2016-06-02] MEDS: LEVOTHYROXINE 88 MCG TAB PO SCH (05:46)
[2016-06-02 06:07] LABS: % IMMATURE GRANULYOCYTES 0.7 % (0.0-1.1); ABSOLUTE IMMATURE GRANULOCYTES 0.12 10^3/uL (0.00-0.10); ADD DIFF? NO; ADD MORPH? NO; ADD SCAN? NO; ATYPICAL LYMPHOCYTE FLAG 30 (0-99); FRAGMENT RBC FLAG 0 (0-99); HEMATOCRIT 37.5 % (38.0-47.0); LEFT SHIFT FLG 0 (0-99); LIPEMIA HEMOLYSIS FLAG 90 (0-99); MEAN CELL HEMOGLOBIN 31.5 pg (27.9-34.1); MEAN CELL HEMOGLOBIN CONCENTR. 34.7 g/dL (32.4-36.7); MEAN CELL VOLUME 90.8 fL (81.5-99.8); MEAN PLATELET VOLUME 10.1 fL (8.7-11.7); PLATELET CLUMPS FLAG 0 (0-99); PLATELET COUNT 253 10^3/uL (150-400); RED BLOOD CELL COUNT 4.13 10^6/uL (4.18-5.33); RED CELL DISTRIBUTION WIDTH 13.5 % (11.5-15.2)
[2016-06-02 06:21] LABS: SODIUM 133 mEq/L (134-144)
[2016-06-02 06:23] LABS: ANION GAP 6 mEq/L (8-16); CALCIUM 8.7 mg/dL (8.5-10.4); CARBON DIOXIDE 21 mEq/l (22-31); CHLORIDE 106 mEq/L (97-110); CREATININE 0.6 mg/dL (0.6-1.0); GLOMERULAR FILTRATION RATE > 60; GLUCOSE 141 mg/dL (70-100); POTASSIUM 4.1 mEq/L (3.5-5.2)
[2016-06-02] MEDS: predniSONE 20 MG TAB PO SCH (08:58)
[2016-06-02] MEDS: SOTALOL HCL 120 MG PO SCH ×2 (08:59→20:08)
[2016-06-02] MEDS: CYCLOSPORINE 0.05% 1 EACH BOX EACHEYE SCH ×2 (08:59→20:07)
[2016-06-02] MEDS: amLODIPine BESYLATE 5 MG TAB PO SCH (09:00)
[2016-06-02] MEDS: APIXABAN 2.5 MG TAB PO SCH ×2 (09:01→20:06)
[2016-06-02] MEDS: ACYCLOVIR 400 MG TAB PO SCH (09:02)
[2016-06-02] MEDS: VANCOMYCIN 750 MG in D5W 150 ML IV SCH (10:50)
--- NOTE | 2016-06-02 11:52 | PDINTPN ---
Interactive Designer Progress Note Assessment/Plan: Assessment: 81 F admitted 05/30 with CAP after failing outpatient therapy with doxycycline and worsening infiltrates on CXR. She has a pacemaker in the setting of atrial fibrillation and HTN, but no chronic lung disease and is a non smoker. She was initially treated with Levaquin. * Respiratory failure with hypoxemia- 2/2 multilobar CAP. On Levo/Vanco, as well as prednisone and albuterol nebs. O2 needs down. * CAP- as above. Await legionella and strep urinary antigens. * Hyponatremia- consistent with SIADH despite initial tiny rise with IVF. Improved with fluid restriction, now down a bit. * CHF?: ECHO with Normal LV, Moderate pulmonary HTN. * Plan: Will change Levaquin to CTX due to concern re: Sotolol and PT prolongation. Await Legionella, and if positive will resume Levaquin and hold Sotolol. Follow CXR. Check 12-lead ECG. Transfer to tele. 06/02/16 12:10 Subjective: Feels better, less dyspnea able to be more active, strength improved, appetite fairly good. Mild cough persists. Objective: Vital Signs Temp Pulse Resp BP Pulse Ox 36.6 C 64 25 H 104/61 92 06/02/16 08:00 06/02/16 10:00 06/02/16 10:00 06/02/16 10:00 06/02/16 10:00 Microbiology 05/31/16 03:50 - Final Sputum, Expectorated Sputum Culture - Final Laboratory Results 06/02/16 06:00 06/02/16 06:00 06/01/16 06/02/16 06/03/16 05:59 05:59 05:59 Intake Total 2768 1358 Output Total 1950 200 Balance 818 1158 PT 18.6 SEC (12.0-15.0) H 05/30/16 11:50 INR 1.55 (0.83-1.16) H 05/30/16 11:50 CXR: Persistent moderately extensive bilateral infiltrates, little change. Images reviewed. Physical Exam - Physical Exam General Appearance: alert, no apparent distress EENT: normal ENT inspection Neck: normal inspection Respiratory: crackles (left>right) Cardiac/Chest: regular rate, rhythm, No edema Abdomen: normal bowel sounds, non-tender Skin: normal color, warm/dry Extremities: normal inspection Neuro/Psych: alert, normal mood/affect, oriented x 3 ICD10 Worksheet Patient Problems: Problems Problem Status Onset Hyponatremia Acute Pneumonia Acute Transient cerebral ischemia Acute
[2016-06-02] MEDS ORDERED: cefTRIAXone 1 GM in D5W 50 ML IV SCH (12:00)
--- NOTE | 2016-06-02 12:17 | CPEKG ---
Heart Rate: 67 RR Interval: 896 P-R Interval: 182 QRSD Interval: 86 QT Interval: 480 QTC Interval: 507 P [place]: 93 QRS [place]: 58 T Wave [place]: 17 EKG Severity - ABNORMAL ECG - EKG Impression: ATRIAL-PACED COMPLEXES EKG Impression: DIFFUSE T WAVE ABNORMALITIES EKG Impression: BORDERLINE PROLONGED QT INTERVAL EKG Impression: No significant change from May 30, 2016 Electronically Signed By: Dany Moran 02-Jun-2016 17:52:51
--- NOTE | 2016-06-02 15:35 | HOSPPROG ---
Hospitalist Progress Note Assessment/Plan: Assessment: 81-year-old female presents with acute hypoxic respiratory failure in the setting of pneumonia Plan: 1. Acute hypoxic respiratory failure. Evidenced by SpO2 of 50% on room air on presentation, her SpO2 was 84% on 10 L nasal cannula which is equivalent to a P: F ratio of 96 (severe acute lung injury by WHO criteria) + visible tachypnea and labored breathing on presentation, 2/2 pneumonia. -s/p BiPAP -weaning o2 requirements today 2. Pneumonia. POA, community acquired -cont prednisone D#3, cont to have bronchial breath sounds -uLeg neg, d/w Dr. Arzate and we agreed to adjust to ceftriaxone from levofloxacin -monitor CBC -D#3 vanco -cont nebs nebs 3. Atrial fibrillation. Persistent, in NSR b/c of sotalol, continue -cont eliquis -monitor on tele -daily EKG to monitor QT 4. Hyponatremia. Acute, 2/2 hypovolemia Diet. Regular PPx. High risk, on eliquis Code. Full per patient, MPOA Dispo. ADD uncertain, clinically unresolved. Subjective: patient reports that she is breathing better today Objective: Vital Signs Temp Pulse Resp BP Pulse Ox 36.6 C 70 28 H 154/70 H 95 06/02/16 08:00 06/02/16 14:00 06/02/16 14:00 06/02/16 14:00 06/02/16 14:00 Microbiology 05/31/16 03:50 - Final Sputum, Expectorated Sputum Culture - Final Laboratory Results 06/02/16 06:00 06/02/16 06:00 06/01/16 06/02/16 06/03/16 05:59 05:59 05:59 Intake Total 2768 1358 Output Total 1950 200 Balance 818 1158 PT 18.6 SEC (12.0-15.0) H 05/30/16 11:50 INR 1.55 (0.83-1.16) H 05/30/16 11:50 - Physical Exam Constitutional: no apparent distress, appears nourished, not in pain, uncomfortable Cardiovascular: regular rate and rhythym, systolic murmur ( 2/6 at the sternum) , No irregularly irregular, No tachycardia, No edema Respiratory: bronchial breath sounds ( bilaterally), rhonchi ( on inspiration bilaterally), No expiratory wheeze, No respiratory distress Gastrointestinal: normoactive bowel sounds, soft, non-tender abdomen, no palpable masses Neurologic: AAOx3, sensation intact bilaterally, No facial droop Psychiatric: interacting appropriately, not anxious, not encephalopathic, thought process linear ICD10 Worksheet Patient Problems: Problems Problem Status Onset Transient cerebral ischemia Acute Pneumonia Acute Hyponatremia Acute
[2016-06-02] MEDS: SIMVASTATIN 10 MG PO SCH (20:06)
[2016-06-02] MEDS: MELATONIN 3 MG TAB PO SCH (20:06)
[2016-06-03] MEDS: IPRATROPIUM/ALBUTEROL 3 ML DEYVIAL IH SCH ×5 (00:07→22:52)
[2016-06-03] MEDS: LEVOTHYROXINE 88 MCG TAB PO SCH (05:53)
[2016-06-03 06:41] LABS: ANION GAP 10 mEq/L (8-16); CALCIUM 7.9 mg/dL (8.5-10.4); CARBON DIOXIDE 21 mEq/l (22-31); CHLORIDE 109 mEq/L (97-110); CREATININE 0.5 mg/dL (0.6-1.0); GLOMERULAR FILTRATION RATE > 60; GLUCOSE 99 mg/dL (70-100); POTASSIUM 3.7 mEq/L (3.5-5.2); SODIUM 140 mEq/L (134-144)
[2016-06-03] MEDS: amLODIPine BESYLATE 5 MG TAB PO SCH (09:30)
[2016-06-03] MEDS: ACYCLOVIR 400 MG TAB PO SCH (09:30)
[2016-06-03] MEDS: APIXABAN 2.5 MG TAB PO SCH ×2 (09:31→21:27)
[2016-06-03] MEDS: predniSONE 20 MG TAB PO SCH (09:32)
[2016-06-03] MEDS: CYCLOSPORINE 0.05% 1 EACH BOX EACHEYE SCH ×2 (09:33→21:28)
[2016-06-03] MEDS: SOTALOL HCL 120 MG PO SCH ×2 (09:39→21:31)
--- NOTE | 2016-06-03 14:36 | HOSPPROG ---
Hospitalist Progress Note Assessment/Plan: INTERVAL SUMMARY & DAILY PROGRESS NOTE DATE OF ADMISSION:05/30/2016 INTERVAL DIAGNOSES 1. Acute hypoxic respiratory failure 2. Pneumonia present on arrival 3. Persistent atrial fibrillation 4. Acute hyponatremia CONSULTATIONS pulmonary Critical Care PROCEDURES / IMAGING chest x-ray demonstrating bilateral multifocal pneumonia CHIEF COMPLAINT acute shortness of breath and weakness SUBJECTIVE patient is feeling significantly better, she is currently breathing well on supplemental oxygen and continues to experience some shortness of breath with ambulation HOSPITAL COURSE BY PROBLEM The patient was admitted with bilateral multifocal pneumonia and received aggressive respiratory support, initially with BiPAP therapy, then transitioned to Vapotherm, most recently transitioned to nasal cannula oxygen. She received aggressive broad-spectrum antibiotics including vancomycin and levofloxacin, and these have been adjusted to single agent ceftriaxone to avoid QT prolongation in the setting of sotalol. She will most likely require supplemental oxygen at time of discharge. Assessment: 81-year-old female presents with acute hypoxic respiratory failure in the setting of pneumonia Plan: 1. Acute hypoxic respiratory failure. Evidenced by SpO2 of 50% on room air on presentation, her SpO2 was 84% on 10 L nasal cannula which is equivalent to a P: F ratio of 96 (severe acute lung injury by WHO criteria) + visible tachypnea and labored breathing on presentation, 2/2 pneumonia. -s/p BiPAP and vapotherm -cont weaning o2 requirements 2. Pneumonia. POA, community acquired -cont prednisone D#4/5, minimal bronchial breath sounds, cont PRN nebs -uLeg/uStrep neg -s/p 3 days of Vanco/Levo, now on D#2 CTX (5 days total, likely need 7 total given extent of infxn process) 3. Atrial fibrillation. Persistent, in NSR b/c of sotalol, continue -cont eliquis -monitor on tele 4. Hyponatremia. Acute, 2/2 hypovolemia Diet. Regular PPx. High risk, on eliquis Code. Full per patient, MPOA Dispo. ADD 06/05, clinically unresolved, will likely require home care. Subjective: patient reports still feeling short of breath with ambulation Objective: Vital Signs Temp Pulse Resp BP Pulse Ox 36.4 C 61 20 120/71 97 06/03/16 12:00 06/03/16 12:06/03/16 12:06/03/16 12:06/03/16 12:00 Microbiology 05/31/16 03:50 - Final Sputum, Expectorated Sputum Culture - Final Laboratory Results 06/02/16 06:00 06/03/16 06:05 06/02/16 06/03/16 06/04/16 05:59 05:59 05:59 Intake Total 1358 1350 Output Total 200 Balance 1158 1350 PT 18.6 SEC (12.0-15.0) H 05/30/16 11:50 INR 1.55 (0.83-1.16) H 05/30/16 11:50 - Physical Exam Constitutional: no apparent distress, appears nourished, not in pain, No uncomfortable Cardiovascular: systolic murmur ( 106 systolic at the sternum in 8), No irregularly irregular, No tachycardia, No edema Respiratory: bronchial breath sounds ( at the end of the expiratory phase bilaterally), rhonchi ( on inspiration bilaterally diffusely throughout), No expiratory wheeze, No respiratory distress Gastrointestinal: normoactive bowel sounds, soft, non-tender abdomen, no palpable masses Neurologic: AAOx3, sensation intact bilaterally, No weakness Psychiatric: interacting appropriately, not anxious, not encephalopathic, thought process linear ICD10 Worksheet Patient Problems: Problems Problem Status Onset Transient cerebral ischemia Acute Pneumonia Acute Hyponatremia Acute
[2016-06-03] MEDS: SIMVASTATIN 10 MG PO SCH (21:29)
[2016-06-03] MEDS: MELATONIN 3 MG TAB PO SCH (21:32)
[2016-06-04] MEDS: LEVOTHYROXINE 88 MCG TAB PO SCH (05:48)
[2016-06-04] MEDS: IPRATROPIUM/ALBUTEROL 3 ML DEYVIAL IH SCH ×3 (06:08→16:52)
[2016-06-04 06:40] LABS: ANION GAP 7 mEq/L (8-16); CALCIUM 8.2 mg/dL (8.5-10.4); CARBON DIOXIDE 25 mEq/l (22-31); CHLORIDE 104 mEq/L (97-110); CREATININE 0.6 mg/dL (0.6-1.0); GLOMERULAR FILTRATION RATE > 60; GLUCOSE 98 mg/dL (70-100); POTASSIUM 3.7 mEq/L (3.5-5.2); SODIUM 136 mEq/L (134-144)
--- NOTE | 2016-06-04 09:00 | HOSPPROG ---
Hospitalist Progress Note Assessment/Plan: # acute hypoxic resp failure - better overall # diffuse bilat pna - improving on rocephin - consider aspiration given CXR appearance - will d/w grape pruner - cxr tomorrow - dc pred after dose today # a-fib/flutter/ppm - sotalol, eliquis # prolonged QT - recheck ECG # htn - norvasc, restart losartan # hypothyroid - synthroid ## new pt to me CXR personally reviewed chart reviewed Subjective: feels ok today; still has productive cough Objective: Vital Signs Temp Pulse Resp BP Pulse Ox 36.6 C 57 L 18 137/79 H 98 06/04/16 06:00 06/04/16 06:08 06/04/16 06:08 06/04/16 04:00 06/04/16 06:08 Laboratory Results 06/02/16 06:00 06/04/16 06:05 06/03/16 06/04/16 06/05/16 05:59 05:59 05:59 Intake Total 1350 820 Balance 1350 820 PT 18.6 SEC (12.0-15.0) H 05/30/16 11:50 INR 1.55 (0.83-1.16) H 05/30/16 11:50 - Physical Exam Constitutional: no apparent distress, appears nourished Cardiovascular: no murmur, rub, or gallop, irregularly irregular Respiratory: other (no distress; diffuse rhonchi/rales; no wheezes) Gastrointestinal: normoactive bowel sounds, soft, non-tender abdomen, no palpable masses ICD10 Worksheet Patient Problems: Problems Problem Status Onset Hyponatremia Acute Pneumonia Acute Transient cerebral ischemia Acute
[2016-06-04] MEDS: amLODIPine BESYLATE 5 MG TAB PO SCH (09:47)
[2016-06-04] MEDS: APIXABAN 2.5 MG TAB PO SCH ×2 (09:47→21:29)
[2016-06-04] MEDS: LOSARTAN POTASSIUM 50 MG TAB PO SCH (09:47)
[2016-06-04] MEDS: predniSONE 20 MG TAB PO SCH (09:47)
[2016-06-04] MEDS: CYCLOSPORINE 0.05% 1 EACH BOX EACHEYE SCH ×2 (09:48→21:29)
[2016-06-04] MEDS: ACYCLOVIR 800 MG TABLET PO SCH (09:48)
[2016-06-04] MEDS: SOTALOL HCL 120 MG PO SCH ×2 (09:49→21:28)
--- NOTE | 2016-06-04 09:50 | CPEKG ---
Heart Rate: 67 RR Interval: 896 QRSD Interval: 92 QT Interval: 408 QTC Interval: 431 QRS [place]: 47 T Wave [place]: -53 EKG Severity - ABNORMAL ECG - EKG Impression: ATRIAL FIBRILLATION EKG Impression: CONSIDER LEFT VENTRICULAR HYPERTROPHY EKG Impression: NONSPECIFIC T ABNORMALITIES, DIFFUSE LEADS EKG Impression: Paired PVCs EKG Impression: No evidence of atrial pacemaker since June 02, 2016 Electronically Signed By: Dany Moran 04-Jun-2016 14:04:13
[2016-06-04] MEDS: SIMVASTATIN 10 MG PO SCH (21:29)
[2016-06-04] MEDS: MELATONIN 3 MG TAB PO SCH (21:29)
[2016-06-05] MEDS: IPRATROPIUM/ALBUTEROL 3 ML DEYVIAL IH SCH ×5 (00:23→22:23)
[2016-06-05 05:05] LABS: ANION GAP 7 mEq/L (8-16); CARBON DIOXIDE 29 mEq/l (22-31); CHLORIDE 101 mEq/L (97-110); CREATININE 0.6 mg/dL (0.6-1.0); GLOMERULAR FILTRATION RATE > 60; GLUCOSE 97 mg/dL (70-100); POTASSIUM 3.9 mEq/L (3.5-5.2); SODIUM 137 mEq/L (134-144)
[2016-06-05] MEDS: CYCLOSPORINE 0.05% 1 EACH BOX EACHEYE SCH ×2 (08:17→21:01)
[2016-06-05] MEDS: amLODIPine BESYLATE 5 MG TAB PO SCH (08:18)
[2016-06-05] MEDS: APIXABAN 2.5 MG TAB PO SCH ×2 (08:21→21:01)
[2016-06-05] MEDS: LOSARTAN POTASSIUM 50 MG TAB PO SCH (08:23)
[2016-06-05] MEDS: ACYCLOVIR 800 MG TABLET PO SCH (08:24)
[2016-06-05] MEDS: SOTALOL HCL 120 MG PO SCH ×2 (08:25→21:03)
[2016-06-05] MEDS: LEVOTHYROXINE 88 MCG TAB PO SCH (12:07)
--- NOTE | 2016-06-05 13:07 | HOSPPROG ---
Hospitalist Progress Note Assessment/Plan: # acute hypoxic resp failure - better overall, still on O2 # diffuse bilat pna - improving on rocephin; pred stopped - no clear aspiration per BUSINESS DEVELOPMENT CONSULTANT - cxr tomorrow - IS, flutter valve # a-fib/flutter/ppm - sotalol, eliquis # prolonged QT - ECG reviewed - not significantly prolonged # htn - norvasc, losartan # hypothyroid - synthroid ## tele reviewed - flutter Subjective: still coughing Objective: Vital Signs Temp Pulse Resp BP Pulse Ox 36.5 C 78 18 115/68 95 06/05/16 11:28 06/05/16 11:44 06/05/16 11:44 06/05/16 11:28 06/05/16 11:44 Laboratory Results 06/02/16 06:00 06/05/16 04:00 06/04/16 06/05/16 06/06/16 05:59 05:59 05:59 Intake Total 820 500 Balance 820 500 PT 18.6 SEC (12.0-15.0) H 05/30/16 11:50 INR 1.55 (0.83-1.16) H 05/30/16 11:50 - Physical Exam Constitutional: no apparent distress, appears nourished Cardiovascular: regular rate and rhythym, no murmur, rub, or gallop Respiratory: no respiratory distress, reduced air movement (mild), inspiratory crackles, No rhonchi Gastrointestinal: normoactive bowel sounds, soft, non-tender abdomen, no palpable masses ICD10 Worksheet Patient Problems: Problems Problem Status Onset Transient cerebral ischemia Acute Pneumonia Acute Hyponatremia Acute
[2016-06-05] MEDS: guaiFENesin 600 MG TAB.ER PO SCH (21:01)
[2016-06-05] MEDS: MELATONIN 3 MG TAB PO SCH (21:01)
[2016-06-05] MEDS: SIMVASTATIN 10 MG PO SCH (21:02)
[2016-06-06] MEDS: IPRATROPIUM/ALBUTEROL 3 ML DEYVIAL IH SCH ×2 (05:02→10:37)
[2016-06-06] MEDS: LEVOTHYROXINE 88 MCG TAB PO SCH (06:14)
[2016-06-06 07:39] LABS: % IMMATURE GRANULYOCYTES 0.7 % (0.0-1.1); ABSOLUTE IMMATURE GRANULOCYTES 0.08 10^3/uL (0.00-0.10); ADD DIFF? NO; ADD MORPH? NO; ADD SCAN? NO; ATYPICAL LYMPHOCYTE FLAG 10 (0-99); FRAGMENT RBC FLAG 0 (0-99); HEMATOCRIT 40.6 % (38.0-47.0); HEMOGLOBIN 13.6 g/dL (12.6-16.3); LEFT SHIFT FLG 0 (0-99); LIPEMIA HEMOLYSIS FLAG 80 (0-99); MEAN CELL HEMOGLOBIN 30.6 pg (27.9-34.1); MEAN CELL HEMOGLOBIN CONCENTR. 33.5 g/dL (32.4-36.7); MEAN CELL VOLUME 91.2 fL (81.5-99.8); MEAN PLATELET VOLUME 9.2 fL (8.7-11.7); PLATELET CLUMPS FLAG 0 (0-99); PLATELET COUNT 250 10^3/uL (150-400); RED BLOOD CELL COUNT 4.45 10^6/uL (4.18-5.33); RED CELL DISTRIBUTION WIDTH 13.4 % (11.5-15.2)
[2016-06-06 07:47] LABS: ANION GAP 4 mEq/L (8-16); CALCIUM 7.8 mg/dL (8.5-10.4); CARBON DIOXIDE 33 mEq/l (22-31); CHLORIDE 100 mEq/L (97-110); CREATININE 0.6 mg/dL (0.6-1.0); GLOMERULAR FILTRATION RATE > 60; GLUCOSE 72 mg/dL (70-100); POTASSIUM 3.9 mEq/L (3.5-5.2); SODIUM 137 mEq/L (134-144)
[2016-06-06] MEDS: amLODIPine BESYLATE 5 MG TAB PO SCH (08:07)
[2016-06-06] MEDS: LOSARTAN POTASSIUM 50 MG TAB PO SCH (08:10)
[2016-06-06] MEDS: guaiFENesin 600 MG TAB.ER PO SCH (08:10)
[2016-06-06] MEDS: CYCLOSPORINE 0.05% 1 EACH BOX EACHEYE SCH (08:11)
[2016-06-06] MEDS: APIXABAN 2.5 MG TAB PO SCH (08:11)
[2016-06-06] MEDS: ACYCLOVIR 800 MG TABLET PO SCH (08:13)
[2016-06-06] MEDS: SOTALOL HCL 120 MG PO SCH (08:14)
[2016-06-06 09:23] VITALS: O2SAT 93
[2016-06-06 12:34] VITALS: BP 114/62; PULSE 82; RESP 18; TEMP 97.9
--- NOTE | 2016-06-06 12:45 | GDS ---
[f rep st] DISCHARGE SUMMARY FINAL DIAGNOSES: 1. Community-acquired pneumonia. 2. Hypoxia with hypoxic respiratory failure. 3. Atrial fibrillation and flutter, status post pacemaker placement. 4. Prolonged QT interval. 5. Hypertension. 6. Hypothyroid. HOSPITAL COURSE: An 81-year-old female, admitted after failing outpatient doxycycline for a diffuse bilateral pneumonia. She was placed on Rocephin with significant clinical improvement. She was in itially hypoxic. However, she is currently ambulating on room air without desaturations. She has ade wang seen by Physical Therapy, who recommends that she go home with no physical therapy followup. I will give her an additional 3 days of Omnicef to complete a 10-day course of antibiotics, not counti ng the doxycycline that she received initially. She is comfortable with this plan and would like to be discharged home today. Her is coming to pick her up. In terms of her cardiac status, she is currently on sotalol for atrial fib and flutter. She has bee n in and out of fib and flutter, though her daughter tells me she is mostly in a sinus rhythm. She has been rate-controlled throughout her hospitalization. FOLLOWUP: Dr. Joy 5 days after discharge. BILLING: I spent more than 30 minutes on the day of discharge coordinating care. /[id number]/MODL
== END 2016-06-06 14:53 | disposition home or self-care (01) | DRG 189 ==
LOC: EDUNIT# → F2N 13:50 → F2W 06-04 14:16
PROVIDERS: ADMIT Internal Medicine; ATTEND Student in an Organized Health Care Education/Training Program
DX: J96.01 Acute respiratory failure with hypoxia (principal); J18.9 Pneumonia, unspecified organism; I48.1 Persistent atrial fibrillation; E87.1 Hypo-osmolality and hyponatremia; I10 Essential (primary) hypertension; E03.9 Hypothyroidism, unspecified; Z95.0 Presence of cardiac pacemaker; Z79.01 Long term (current) use of anticoagulants; Z86.73 Personal history of transient ischemic attack (TIA), and cerebral infarction without residual deficits
CPT/HCPCS: 82947-QW; 87449-90; 92526-GN; 92610-GN; 96365; 97116-GP; 97161-GP; 97165-GO; 97530-GP; 97535-GO; G8978-GP-CJ; G8979-GP-CI; G8987-GO-CK; G8988-GO-CI; G8996-GN-CI; G8997-GN-CI; G8998-GN-CI; J0696; J1956; J2543; J3370

== ENCOUNTER 2016-06-10 01:54 | Emergency (ER) | payer OTHER ==
--- NOTE | 2016-06-10 02:31 | EDPHY ---
H & P Stated Complaint: constipated x 1 week Time Seen by Provider: 06/10/16 02:22 HPI/ROS: HPI The patient presents with constipation which has been present for approximately 1 week. She has had very small hard bowel movements since 5 days ago. She does have a history of constipation and takes MiraLax frequently, however this did not improve her symptoms. The constipation has been constant, is moderate in severity, and now is associated with urinary frequency with small amount thoughts of urine with each void. She was admitted to the hospital from May 30 to June 06 with a pneumonia. She is currently on antibiotics.. REVIEW OF SYSTEMS Constitutional: No fever, no chills. Eyes: No discharge. ENT: No sore throat. Cardiovascular: No chest pain, no palpitations. Respiratory: No cough, no shortness of breath. Gastrointestinal: No abdominal pain, no vomiting. Genitourinary: No hematuria. Musculoskeletal: No back pain. Skin: No rashes. Neurological: No headache. PMHx: Recent pneumonia, atrial fibrillation Soc Hx: Lives at home with her PHYSICAL General Appearance: Alert, no distress Eyes: Pupils equal and round no pallor or injection ENT, Mouth: Mucous membranes moist Respiratory: There are no retractions, lungs are clear to auscultation Cardiovascular: Regular rate and rhythm Gastrointestinal: Abdomen is soft with suprapubic abdominal distention with mild tenderness Neurological: A&O, moves all extremities Skin: Warm and dry, no rashes Musculoskeletal: Neck is supple non tender Extremities: symmetrical, full range of motion Psychiatric: Patient is oriented X 3, there is no agitation Source: Patient, Old records Exam Limitations: No limitations - Medical/Surgical History Hx Asthma: No Hx Chronic Respiratory Disease: No Hx Diabetes: No Hx Cardiac Disease: Yes Hx Renal Disease: No Hx Cirrhosis: No Hx Alcoholism: No Hx HIV/AIDS: No Hx Splenectomy or Spleen Trauma: No Other PMH: thrombic stroke. hysterectomy. subdural hematoma 07. \. AFIB. PACER. Factor V - Social History Smoking Status: Former smoker Constitutional: Initial Vital Signs Temperature (C) 36.6 C 06/10/16 02:06 Heart Rate 66 06/10/16 02:06 Respiratory Rate 16 06/10/16 02:06 Blood Pressure 131/77 H 06/10/16 02:06 O2 Sat (%) 95 06/10/16 02:06 O2 Delivery Mode Room Air Allergies/Adverse Reactions: Sulfa (Sulfonamide Antibiotics) Allergy (Verified 06/10/16 02:08) Home Medications: Medication Instructions Recorded Acyclovir [Zovirax] 800 mg PO DAILY 09/08/15 Levothyroxine [Synthroid 88 mcg 88 mcg PO DAILY06 09/08/15 (*)] Losartan Potassium [Cozaar 50 mg 50 mg PO DAILY 09/08/15 (*)] SIMVASTATIN 10 mg PO HS 09/08/15 cycloSPORINE 0.05% [Restasis Opht 1 drop EACHEYE BID 09/08/15 Drops(*)] Apixaban [Eliquis] 2.5 mg PO BID 05/30/16 Benzonatate 200 mg PO TID PRN 05/30/16 Sotalol HCl [Sotalol] 120 mg PO BID 05/30/16 amLODIPine BESYLATE [Norvasc 5 mg 2.5 - 5 mg PO DAILY 05/30/16 (*)] Cefdinir [Omnicef (*)] 300 mg PO BID #6 cap 06/06/16 Medical Decision Making Differential Diagnosis: This is an 81-year-old female with atrial fibrillation, recent hospital admission for pneumonia who presents with about a week of constipation, now seemingly associated with urinary retention. On exam she has a distended bladder. Differential diagnosis includes constipation, bowel obstruction, urinary tract infection. The patient was able to provide a urine sample which did not show any signs of infection. A soapsuds enema was administered with good result and she felt much better. She was also able to void completely and no longer had any suprapubic tenderness. Repeat abdominal exam was completely benign, thus I doubt bowel obstruction at this time. I have instructed her to drink plenty of fluids, continue her MiraLax and get good exercise. She is in agreement with this plan and will be discharged home. - Data Points Laboratory Results: 06/10/16 02:30 Urine Color PALE YELLOW Urine Appearance CLEAR Urine pH 9.0 H (5.0-7.5) Ur Specific Crystal 1.005 (1.002-1.030) Urine Protein NEGATIVE (NEGATIVE) Urine Ketones NEGATIVE (NEGATIVE) Urine Blood NEGATIVE (NEGATIVE) Urine Nitrate NEGATIVE (NEGATIVE) Urine Bilirubin NEGATIVE (NEGATIVE) Urine Urobilinogen NEGATIVE EU EU (0.2-1.0) Ur Leukocyte Esterase NEGATIVE (NEGATIVE) Ur Culture Indicated? NOT INDICATED (NI) Urine Glucose NEGATIVE (NEGATIVE) Departure - Departure Disposition: Home, Routine, Self-Care Clinical Impression: Constipation Condition: Good Instructions: Constipation (ED) Referrals: Aliyah Joy MD [Primary Care Provider] - As per Instructions
[2016-06-10 02:40] LABS: COLOR PALE YELLOW; LEUKOCYTE ESTERASE,URINE NEGATIVE (NEGATIVE); NITRITE,URINE NEGATIVE (NEGATIVE)
[2016-06-10 04:13] VITALS: BP 106/61; PULSE 61; RESP 18; TEMP 98.2; O2SAT 91
== END 2016-06-10 04:12 | disposition home or self-care (01) ==
DX: K59.00 Constipation, unspecified (principal); Z79.01 Long term (current) use of anticoagulants; Z87.891 Personal history of nicotine dependence

== ENCOUNTER → 2016-08-20 | Outpatient (CLI) | payer OTHER | LOC: FIMAGING 14:01 | PROVIDERS: ATTEND Internal Medicine | DX: R91.8 Other nonspecific abnormal finding of lung field (principal); Z87.01 Personal history of pneumonia (recurrent) ==

== ENCOUNTER 2016-12-21 20:27 | Emergency (ER) | payer OTHER ==
[2016-12-21] MEDS ORDERED: NS 1,000 ML IV ONE (20:53)
--- NOTE | 2016-12-21 20:56 | EDPHY ---
H & P Stated Complaint: intermittent L hand numbness; not currently numb, in and out of a fib Time Seen by Provider: 12/21/16 20:34 HPI/ROS: CHIEF COMPLAINT: Left hand weakness HISTORY OF PRESENT ILLNESS: The patient is an 81-year-old female who presents to the emergency department with her complaining left hand numbness and weakness that is now resolved. She states that it began around 8 o'clock and lasted for about 10 minutes. She has had this several times in the past. She was admitted 1 year ago for the same and thought to have had a TIA. She is on Eliquis for history of paroxysmal AFib. She also has a meningioma and a history of subdural hemorrhage in 2007 status post craniotomy. She states that this is happened to her 3 or 4 times total and always scared her. It happened Wednesday night for about 20 minutes and again tonight. REVIEW OF SYSTEMS: Constitutional: denies: chills, fever, recent illness, recent injury EENTM: denies: blurred vision, double vision, nose congestion Respiratory: denies: cough, shortness of breath Cardiac: denies: chest pain, irregular heart rate, lightheadedness, palpitations Gastrointestinal/Abdominal: denies: abdominal pain, diarrhea, nausea, vomiting, blood streaked stools Genitourinary: denies: dysuria, frequency, hematuria, pain Musculoskeletal: denies: joint pain, muscle pain Skin: denies: lesions, rash, jaundice, bruising Neurological: See HPI Hematologic/Lymphatic: denies: blood clots, easy bleeding, easy bruising Immunologic/allergic: denies: HIV/AIDS, transplant EXAM: GENERAL: Well-appearing, well-nourished and in no acute distress. HEAD: Atraumatic, normocephalic. EYES: Pupils equal round and reactive to light, extraocular movements intact, sclera anicteric, conjunctiva are normal. ENT: TMs normal, nares patent, oropharynx clear without exudates. Moist mucous membranes. NECK: Normal range of motion, supple without lymphadenopathy or JVD. LUNGS: Breath sounds clear to auscultation bilaterally and equal. No wheezes rales or rhonchi. HEART: Regular rate and rhythm without murmurs, rubs or gallops. ABDOMEN: Soft, nontender, normoactive bowel sounds. No guarding, no rebound. No masses appreciated. BACK: No CVA tenderness, no spinal tenderness, step-offs or deformities EXTREMITIES: Normal range of motion, no pitting or edema. No clubbing or cyanosis. NEUROLOGICAL: NIH stroke score 0, Cranial nerves II through XII grossly intact. Normal speech, normal gait. 5/5 strength, normal movement in all extremities, normal sensation, normal reflexes, normal cerebellar exam PSYCH: Normal mood, normal affect. SKIN: Warm, dry, normal turgor, no visible rashes or lesions. Source: Patient Exam Limitations: No limitations - Personal History Current Tetanus/Diphtheria Vaccine: Yes - Medical/Surgical History Hx Asthma: No Hx Chronic Respiratory Disease: No Hx Diabetes: No Hx Cardiac Disease: Yes Hx Renal Disease: No Hx Cirrhosis: No Hx Alcoholism: No Hx HIV/AIDS: No Hx Splenectomy or Spleen Trauma: No Other PMH: PMHx: thrombic stroke, subdural hematoma 2006, atrial fibrillation, G2PS. PSHx: hysterectomy, subdural hematoma evacuation. PACER. Factor V - Family History Significant Family History: No pertinent family hx - Social History Smoking Status: Former smoker Alcohol Use: Sober Drug Use: None Constitutional: Initial Vital Signs Temperature (C) 37 C 12/21/16 20:30 Heart Rate 62 12/21/16 20:30 Respiratory Rate 16 12/21/16 20:30 Blood Pressure 142/95 H 12/21/16 20:30 O2 Sat (%) 94 12/21/16 20:30 O2 Delivery Mode Room Air Allergies/Adverse Reactions: Sulfa (Sulfonamide Antibiotics) Allergy (Verified 06/10/16 02:08) Home Medications: Medication Instructions Recorded Acyclovir [Zovirax] 800 mg PO DAILY 09/08/15 Levothyroxine [Synthroid 88 mcg 88 mcg PO DAILY06 09/08/15 (*)] Losartan Potassium [Cozaar 50 mg 50 mg PO DAILY 09/08/15 (*)] SIMVASTATIN 10 mg PO HS 09/08/15 cycloSPORINE 0.05% [Restasis Opht 1 drop EACHEYE BID 09/08/15 Drops(*)] Apixaban [Eliquis] 2.5 mg PO BID 05/30/16 Benzonatate 200 mg PO TID PRN 05/30/16 Sotalol HCl [Sotalol] 120 mg PO BID 05/30/16 amLODIPine BESYLATE [Norvasc 5 mg 2.5 - 5 mg PO DAILY 05/30/16 (*)] Cefdinir [Omnicef (*)] 300 mg PO BID #6 cap 06/06/16 Cephalexin [Keflex] 500 mg PO TID #21 cap 12/21/16 Potassium 12/21/16 Medical Decision Making - Diagnostics EKG Interpretation: An EKG obtained and was read and documented in trace view. Please see trace view for full reading and report. Atrial paced rhythm, sinus ED Course/Re-evaluation: The patient remains asymptomatic. Her urine is cloudy and positive for multiple white cells on the dipstick. I recommended admission for continued rule out of TIA however she declines. She states that she has been through this before. She has a appointment with her primary doctor this week and has been referred to neurologist. I will start treatment for her urinary tract infection. This may be recrudescence because the infection. Patient and were given strict return precautions. Differential Diagnosis: Partial list of the Differential diagnosis considered include but were not limited to; urinary tract infection, TIA, breast neuropathy and although unlikely based on the history and physical exam, I also considered vascular injury, acute coronary disease, PE. I discussed these differential diagnoses and the plan with the patient as well as the usual and expected course. The patient understands that the diagnosis is provisional and that in medicine we are not always correct and that further workup is often warranted. Usual and customary warnings were given. All of the patient's questions were answered. The patient was instructed to return to the emergency department should the symptoms at all worsen or return, otherwise to followup with the physician as we discussed. - Data Points Laboratory Results: Laboratory Results 12/21/16 21:05 12/21/16 21:05 Medications Given: Discontinued Medications Cephalexin HCl (Keflex) 500 mg PO EDNOW ONE PRN Reason: Protocol Stop: 12/21/16 22:38 Last Admin: 12/21/16 23:03 Dose: 500 mg Sodium Chloride (Ns) 1,000 mls @ 0 mls/hr IV ONCE ONE; Wide Open PRN Reason: Protocol Stop: 12/21/16 20:54 Last Admin: 12/21/16 21:04 Dose: 1,000 mls Departure - Departure Disposition: Home, Routine, Self-Care Clinical Impression: Urinary tract infection Condition: Fair Instructions: Urinary Tract Infection in Women (ED) Referrals: Aliyah Joy MD [Primary Care Provider] - As per Instructions Peter Brenard DO [Doctor of Osteopathy] - As per Instructions Prescriptions: Cephalexin [Keflex] 500 mg PO TID #21 cap
[2016-12-21 21:14] LABS: % IMMATURE GRANULYOCYTES 0.2 % (0.0-1.1); ABSOLUTE IMMATURE GRANULOCYTES 0.01 10^3/uL (0.00-0.10); ADD DIFF? NO; ADD MORPH? NO; ADD SCAN? NO; ATYPICAL LYMPHOCYTE FLAG 30 (0-99); FRAGMENT RBC FLAG 0 (0-99); HEMATOCRIT 40.6 % (38.0-47.0); HEMOGLOBIN 13.8 g/dL (12.6-16.3); LEFT SHIFT FLG 0 (0-99); LIPEMIA HEMOLYSIS FLAG 90 (0-99); MEAN CELL HEMOGLOBIN 32.2 pg (27.9-34.1); MEAN CELL VOLUME 94.9 fL (81.5-99.8); PLATELET CLUMPS FLAG 0 (0-99); PLATELET COUNT 242 10^3/uL (150-400); RED BLOOD CELL COUNT 4.28 10^6/uL (4.18-5.33); RED CELL DISTRIBUTION WIDTH 14.4 % (11.5-15.2)
[2016-12-21 21:24] LABS: INR 1.25 (0.83-1.16); PROTIME(PATIENT) 15.7 SEC (12.0-15.0)
[2016-12-21 21:25] LABS: ANION GAP 8 mEq/L (8-16); CALCIUM 8.9 mg/dL (8.5-10.4); CARBON DIOXIDE 23 mEq/l (22-31); CHLORIDE 102 mEq/L (97-110); CREATININE 0.9 mg/dL (0.6-1.0); GLOMERULAR FILTRATION RATE > 60; GLUCOSE 90 mg/dL (70-100); POTASSIUM 3.7 mEq/L (3.5-5.2); SODIUM 133 mEq/L (134-144)
--- NOTE | 2016-12-21 21:48 | CPEKG ---
Heart Rate: 63 RR Interval: 952 P-R Interval: 220 QRSD Interval: 96 QT Interval: 452 QTC Interval: 463 QRS Renick: 61 T Wave Renick: 1 EKG Severity - ABNORMAL ECG - EKG Impression: ATRIAL-PACED RHYTHM EKG Impression: BORDERLINE T ABNORMALITIES, ANTERIOR LEADS Electronically Signed By: Peter Walker 21-Dec-2016 21:59:25
[2016-12-21] MEDS ORDERED: CEPHALEXIN 500 MG CAP PO ONE (22:37)
[2016-12-21 22:48] LABS: COLOR YELLOW; LEUKOCYTE ESTERASE,URINE 3+ (NEGATIVE); NITRITE,URINE NEGATIVE (NEGATIVE)
[2016-12-21 22:55] LABS: BACTERIA 1+ /hpf (NONE SEEN); WBC,URINE 50-182 /hpf (0-3)
[2016-12-21 23:22] VITALS: BP 157/71; PULSE 60; RESP 20; TEMP 98.1; O2SAT 92
== END 2016-12-21 23:02 | disposition home or self-care (01) ==
DX: N39.0 Urinary tract infection, site not specified (principal); E86.9 Volume depletion, unspecified; Z87.891 Personal history of nicotine dependence

== ENCOUNTER 2017-05-25 09:43 | Day surgery (SDC) | payer OTHER ==
[2017-05-25] MEDS ORDERED: BUPIVACAINE/EPI 0.5% 30 ML SDV ONE (10:05)
[2017-05-25] MEDS ORDERED: LR 1,000 ML IV ONE (10:18)
[2017-05-25] MEDS ORDERED: cefOXitin SODIUM 2 GM in STERILE WATER INJ 21 ML IV ONE (10:18)
[2017-05-25] MEDS ORDERED: LIDOCAINE 1% 2 ML INJ ID PRN (10:18)
[2017-05-25] MEDS ORDERED: fentaNYL 100 MCG/2 ML INJ ONE (11:50)
[2017-05-25] MEDS ORDERED: PROPOFOL 200 MG/20 ML VIAL ONE (11:50)
[2017-05-25] MEDS ORDERED: LIDOCAINE 2% 5 ML SDV ONE (11:52)
--- NOTE | 2017-05-25 11:52 | PDANEPAE ---
ANE Past Medical History - Cardiovascular History Hx Hypertension: Yes Hx Arrhythmias: Yes Hx Chest Pain: No Hx Coronary Artery / Peripheral Vascular Disease: No Hx CHF / Valvular Disease: No Hx Palpitations: No - Pulmonary History Hx COPD: No Hx Asthma/Reactive Airway Disease: No Hx Recent Upper Respiratory Infection: No Hx Oxygen in Use at Home: No Hx Sleep Apnea: No Sleep Apnea Screening Result - Last Documented: Negative - Neurologic History Hx Cerebrovascular Accident: Yes Hx Seizures: No Hx Dementia: No Neurologic History Comment: 2002 STROKE, RIGHT LEG WENT NUMB. 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 bruises easily. Factor V liden - Chronic Pain History Chronic Pain: Yes (arthritis right leg) - Surgical History Prior Surgeries: CRANI FOR SUBDURAL 2007. PACEMAKER 2003 ANE Review of Systems Review of Systems: - Exercise capacity METS (RN): 4 METS - Pacemaker Pacemaker Type: Permanent Pacer/Defib Pacemaker Sql Architect: Cm[employer]wentytronic Pacemaker Model: adapta Pacemaker Mode: AAIR-DDDR Date Pacemaker Last Checked: 03/03/17 ANE Patient History - Allergies Allergies/Adverse Reactions: Sulfa (Sulfonamide Antibiotics) Allergy (Mild, Verified 05/24/17 16:17) Rash - Home Medications Home Medications: Acyclovir [Zovirax] 09/08/15 [Last Taken 05/24/17] Levothyroxine [Synthroid 88 mcg (*)] 09/08/15 [Last Taken 05/25/17 07:45] Losartan Potassium [Cozaar 50 mg (*)] 09/08/15 [Last Taken 05/25/17 07:45] SIMVASTATIN 09/08/15 [Last Taken 05/24/17] cycloSPORINE 0.05% [Restasis Opht Drops(*)] 09/08/15 [Last Taken 1 Month Ago ~ 04/27/17] Apixaban [Eliquis] 05/30/16 [Last Taken 05/24/17] Sotalol HCl [Sotalol] 05/30/16 [Last Taken 05/25/17 07:45] amLODIPine BESYLATE [Norvasc 5 mg (*)] 05/30/16 [Last Taken 05/25/17 07:45] Potassium 12/21/16 [Last Taken 05/24/17] Centrum 05/24/17 [Last Taken 2 Days Ago ~05/23/17] - NPO status NPO Since - Liquids (Date): 05/25/17 NPO Since - Liquids (Time): 08:30 NPO Since - Solids (Date): 05/24/17 NPO Since - Solids (Time): 18:30 - Anes Hx Anes Hx: no prior problems - Smoking Hx Smoking Status: Former smoker - Family Anes Hx Family Hx Anesthesia Complications: none ANE Labs/Vital Signs - Labs Result Diagrams: 05/25/17 10:41 - Vital Signs Blood Pressure: 160/72 Heart Rate: 72 Respiratory Rate: 16 O2 Sat (%): 96 Height: 154.94 cm Weight: 52.617 kg ANE Physical Exam - Airway Neck exam: FROM Mallampati Score: Class 2 Mouth exam: normal dental/mouth exam - Pulmonary Pulmonary: no respiratory distress, no rales or rhonchi, clear to auscultation - Cardiovascular Cardiovascular: regular rate and rhythym, no murmur, rub, or gallop - ASA Status ASA Status: III ANE Anesthesia Plan Anesthesia Plan: GA w LMA
[2017-05-25] MEDS ORDERED: DEXAMETHASONE 4 MG/ML VIAL ONE (12:19)
[2017-05-25] MEDS ORDERED: LR 500 ML IV PRN (12:26)
[2017-05-25] MEDS ORDERED: fentaNYL 100 MCG/2 ML INJ IVP PRN (12:26)
[2017-05-25] MEDS ORDERED: NALOXONE HCL 0.4 MG/ML INJ IVP PRN (12:26)
[2017-05-25] MEDS ORDERED: PROMETHAZINE HCL 25 MG/ML INJ IVP PRN (12:26)
[2017-05-25] MEDS ORDERED: ONDANSETRON 4 MG/2 ML VIAL IVP PRN (12:26)
--- NOTE | 2017-05-25 13:18 | POSTANESTH ---
Post Anesthetic Evaluation Cardiovascular Status: Similar to Pre-Op Cond Respiratory Status: Normal, Stable, Similar to Pre-op Cond. Level of Consciousness/Mental Status: Can Participate in Eval, Mildly Sleepy, Arousable Pain Control: Adequate, Prn Tx Ordered Nausea/Vomiting Control: Adequate, Prn Tx Ordered Complications Possibly Related to Anesthesia: None Noted
--- NOTE | 2017-05-25 13:18 | POSTOPPROG ---
Post Op Note Date of Operation: 05/25/17 Surgeon: Greg Phillip Anesthesiologist: christa Anesthesia: GET(General Endotracheal) Pre-op Diagnosis: prolapsing hemorhoids Post-op Diagnosis: same Indication: bleeding Procedure: eua/ hemorhoidectomy Findings: prolapse at 11 oclock Inf/Abcess present in the surg proc area at time of surgery?: No Depth: Organ Space EBL: Minimal Complications: 0 Specimen(s): hemorhoids
--- NOTE | 2017-05-25 13:27 | PDHPUP ---
History & Physical Update H&P update statement: This history and physical update is based on an assessment of the patient which was completed after admission or registration (within 24 hours), but prior to the surgery/procedure. H&P update: H&P reviewed & patient examined, no change in patient's condition since H&P completed
[2017-05-25 13:52] VITALS: BP 143/81
--- NOTE | 2017-05-30 06:12 | GOP ---
[f rep st] OPERATIVE REPORT DATE OF OPERATION: 05/25/2017 SURGEON: Greg Phillip MD ADZ WORKER: There was no hospital nursing assistant. ANESTHESIOLOGIST: Josr Gallagher MD. PREOPERATIVE DIAGNOSIS: Prolapsing hemorrhoids. POSTOPERATIVE DIAGNOSIS: Prolapsing hemorrhoids. PROCEDURE PERFORMED: Exam under anesthesia with hemorrhoidectomy. FINDINGS: The patient was found to have a prolapsing large hemorrhoid at the 11 o'clock position. S he had some minor hemorrhoids at the 5 and 7 o'clock positions. DESCRIPTION OF PROCEDURE: The patient was taken to the operating room where she received satisfactor y general endotracheal anesthesia by Dr. Gallagher, placed in the lithotomy position, prepped and draped in the usual sterile fashion. The wound was infiltrated with 0.5% Marcaine and dilated to 3 fingerbr eadths. Elliptical skin and mucosal incision was made at the 11 o'clock position, elevating the hemo rrhoidal tissue up off the sphincter muscle. The tissue was divided with the harmonic Scalpel and th en closed with a running 3-0 Vicryl suture. At the 5 and 7 o'clock positions, some grade 1-2 minor h emorrhoids were rubber-band ligated. The wound was further infiltrated with 0.5% Marcaine. She tole rated the procedure well, was taken to the recovery room in good condition. There were no complicati ons. /[id number]/MODL
== END 2017-05-25 15:17 | disposition home or self-care (01) ==
LOC: FSGY 09:43
PROVIDERS: ATTEND Surgery
PROC: 06BY0ZC Excision of Hemorrhoidal Plexus, Open Approach (ICD-10-PCS; principal; 2017-05-25 11:30)
DX: K64.8 Other hemorrhoids (principal); K62.89 Other specified diseases of anus and rectum; Z79.01 Long term (current) use of anticoagulants; Z88.2 Allergy status to sulfonamides; Z87.891 Personal history of nicotine dependence
CPT/HCPCS: J0694; J1100; J2704; J3010